=== PATIENT | female | born 1985 | race Caucasian/White ===

== ENCOUNTER → 2016-10-05 | Outpatient (CLI) | payer MEDICAID ==
[~2016-10-05] MED LIST: FERR325T72 PO; IBUP-232 PO; OXYC1TAB63 PO; SENN1TAB PO
== END ==
LOC: HPND 08:47
PROVIDERS: ATTEND Obstetrics & Gynecology Obstetrics
DX: O30.042 Twin pregnancy, dichorionic/diamniotic, second trimester (principal); O40.2XX0 Polyhydramnios, second trimester, not applicable or unspecified; O09.32 Supervision of pregnancy with insufficient antenatal care, second trimester; Z3A.26 26 weeks gestation of pregnancy
CPT/HCPCS: 76811; 76812

== ENCOUNTER 2016-10-08 10:03 | Emergency (ER) | payer MEDICAID ==
[~2016-10-08 10:03] MED LIST changes: -IBUP-232 PO; -OXYC1TAB63 PO; -SENN1TAB PO
--- NOTE | 2016-10-08 11:15 | PD ---
HPI Chief Complaint Mucousy discharge, twin Date Seen: Oct 08, 2016 Time Seen: 11:00 Travel History International Travel<30 Days: No Contact w/Intl Traveler<30Days: No Known Affected Area: No History of Present Illness HPI The patient is a 31-year-old 5 para 2021 at 27-1/7 weeks gestation with a dichorionic diamniotic twin . She reported for visit today and reported 5 days of mucousy discharge. She was sent here for evaluation for possible cervical change or labor. She denies any bleeding, cramping, dysuria hematuria or frequency, vaginal irritation, new sexual partners. She reports good movement. No leakage of fluid. Para: 2 : 5 Miscarriage: 2 : 0 History Past Medical History Narrative Medical Asthma for which she uses albuterol on an as-needed basis Obstetric History Obstetric History 2 term spontaneous vaginal deliveries 2 early first trimester miscarriages without D&C Current is a twin complicated by twin A with polyhydramnios identified this week, dichorionic diamniotic Past Surgical History Surgical History: No Previous Surgery Family History Family History: Negative Social History Alcohol Use: No Tobacco Use: No Substance Abuse: No Allergies-Medications (Allergen,Severity, Reaction): Coded Allergies: *MDRO Multi-Drug Resistant Organism (Verified Adverse Reaction, Unknown, ) MRSA PCR (nares) positive - 12/12/15 Home Meds Active Scripts Ferrous Gluconate 325 Mg [id number] Mg PO DAILY #30 TAB Ref 6 Prov:Grisel Dover CNM [facility] 10/05/16 Without A W/ Fe Carbo (Prenate Mini 29-0.6-0.4-350 mg)1 Cap Cap Sample #2 Prov:Meli Elizabeth [employer]PERATOR HELPER 09/06/16 Review of Systems Except as stated in HPI: all other systems reviewed are Neg Physical Exam Narrative GENERAL: Well-nourished, well-developed patient. SKIN: Warm and dry. HEAD: Normocephalic and atraumatic. EYES: No scleral icterus. No injection or drainage. ENT: No nasal drainage noted. Mucous membranes pink. Airway patent. NECK: Supple, trachea midline. No JVD. CARDIOVASCULAR: Regular rate and rhythm without murmurs, gallops, or rubs. RESPIRATORY: Breath sounds equal bilaterally. No accessory muscle use. ABDOMEN/GI: Abdomen soft, non-tender, bowel sounds present, no rebound, no guarding Gravid to [-] weeks size Fundal Height: [31-] GENITOURINARY: External Genitalia: intact and normal in appearance BUS glands: [Negative-] Cervix: [-] Dilatation: [Closed-] Effacement: [-Long] Station: [High-] Presentation: [-] Membranes: [intact] Uterine Contractions: [-] FHT's: Category: [-] Baseline: [-] Reactive: [-] Variability: [-] Decels: [-] EXTREMITIES: No cyanosis or edema. BACK: Nontender without obvious deformity. No CVA tenderness. NEUROLOGICAL: Awake and alert. Motor and sensory grossly within normal limits. Five out of 5 muscle strength in all muscle groups. Normal speech. Data Data Vital Signs Reviewed: Yes MDM Medical Record Reviewed: Yes Narrative Course / MDM 27 week dichorionic diamniotic with mucousy discharge. Plan: The patient has a stable cervical examination, her fibronectin was positive she is to restrain no contraction activity. She will therefore be discharged home in stable condition with labor precautions. She has a follow-up appointment on Tuesday in 1 week. Diagnosis Diagnosis: Primary Impression: Twin gestation in third trimester Additional Impression: Polyhydramnios affecting Disposition: 01 DISCHARGE HOME Steffen Zelaya MD Oct 08, 2016 11:14
[2016-10-08 11:49] LABS: BACTERIA, URINE RARE /hpf; BLOOD, URINE NEG (NEG); COMMENT (UR) CULTURE INDICATED; CULTURE IF INDICATED CULTURE INDICATED; GLUCOSE,URINE NEG (NEG); KETONE, URINE NEG (NEG); MUCUS URINE FEW /lpf (OCC); NITRITE,URINE NEG (NEG); SQUAMOUS EPITHELIAL CELL URINE 27 /hpf (0-5); URINE COLOR YELLOW (YELLW/STRAW)
[2016-10-08 12:18] LABS: AMPHETAMINE, URINE NEG (NEG); BARBITURATES, URINE NEG (NEG); COCAINE, URINE NEG (NEG)
== END 2016-10-08 13:18 | disposition home or self-care (01) ==
LOC: HOBED 10:03
DX: O40.2XX0 Polyhydramnios, second trimester, not applicable or unspecified (principal); O30.002 Twin pregnancy, unspecified number of placenta and unspecified number of amniotic sacs, second trimester; Z3A.27 27 weeks gestation of pregnancy; B96.89 Other specified bacterial agents as the cause of diseases classified elsewhere
CPT/HCPCS: 80307; 81001; 82731; 87086; 99284

== ENCOUNTER → 2016-11-02 | Outpatient (CLI) | payer MEDICAID ==
[~2016-11-02] MED LIST changes: +IBUP-232 PO; +OXYC1TAB63 PO; +SENN1TAB PO
== END ==
LOC: HPND 09:36
PROVIDERS: ATTEND Obstetrics & Gynecology
DX: O99.323 Drug use complicating pregnancy, third trimester (principal); O40.2XX0 Polyhydramnios, second trimester, not applicable or unspecified; O30.043 Twin pregnancy, dichorionic/diamniotic, third trimester
CPT/HCPCS: 76816

== ENCOUNTER 2016-12-01 15:34 | Emergency (ER) | payer MEDICAID ==
[~2016-12-01 15:34] MED LIST changes: -IBUP-232 PO; -OXYC1TAB63 PO; -SENN1TAB PO
--- NOTE | 2016-12-01 16:44 | PD ---
HPI Chief Complaint Needs US, possible leakage of fluid Date Seen: Dec 01, 2016 Time Seen: 16:23 (Vania Baron MD R1) Travel History International Travel<30 Days: No Contact w/Intl Traveler<30Days: No Known Affected Area: No (Vania Baron MD R1) History of Present Illness HPI Patient is a 31-year-old at 34 and 6/7 weeks with di-di who presents to the ED requiring ultrasound and possible leakage of fluid. She denies vaginal bleeding, and contractions. She feels baby moving regularly. [facility], care notable for late onset of care at 22 weeks, however, she has been followed by ultrasound since August 2016. Notable , twin a, female, noted to have polyhydramnios on sono October 05, 2016. Twin B is male. Medical history includes bipolar disorder, chronic, patient denies being on meds evening prior to . She also has asthma treated with albuterol inhaler as needed, and she notes it has been "a while" since she has needed to use it. On review of EMR from [facility], patient has a history of cocaine and marijuana use. Denies mood symptoms, no history of post- depression. Amnisure is negative. (Vania Baron MD R1) History Past Medical History Narrative Medical Bipolar Asthma Not on meds for either (Vania Baron MD R1) Obstetric History Obstetric History Past Pregnancies 3 Delivery Gest. Outcome Route Length of Anesthesia Delivery Date Age/Wks # Weight/Sex Labor Location Labor 07/03/10 40 1 Live Vaginal 6 lbs 0 oz - F 8 Hrs Epidural [place] No 12/16/15 40 1 Live Vaginal 6 lbs 7 oz - F 28 Hrs Epidural [facility] hosp No (Vania Baron MD R1) Past Surgical History Surgical History: No Previous Surgery (Vania Baron MD R1) Family History Family History: Negative (Vania Baron MD R1) Social History Alcohol Use: No Tobacco Use: No (5 cigarettes per day) Substance Abuse: No (denies; marijuana on EMR) (Vania Baron MD R1) Allergies-Medications (Allergen,Severity, Reaction): Coded Allergies: *MDRO Multi-Drug Resistant Organism (Verified Adverse Reaction, Unknown, ) MRSA PCR (nares) positive - 12/12/15 Home Meds Active Scripts Ferrous Gluconate 325 Mg [id number] Mg PO DAILY #30 TAB Ref 6 Prov:Grisel Dover RICKYGilbert [employer] DIVER 10/05/16 Without A W/ Fe Carbo (Prenate Mini 29-0.6-0.4-350 mg)1 Cap Cap Sample #2 Prov:Meli Elizbaeth [employer]ODUCK DIVER 09/06/16 Review of Systems Except as stated in HPI: all other systems reviewed are Neg (Vania Baron MD R1) Physical Exam Narrative GENERAL: Well-nourished, well-developed female in NAD. SKIN: Warm and dry. No rashes. HEAD: Normocephalic and atraumatic. EYES: No scleral icterus. No injection or drainage. ENT: No nasal drainage noted. Mucous membranes pink. Airway patent. NECK: Supple, trachea midline. No JVD. CARDIOVASCULAR: Regular rate and rhythm without murmurs, gallops, or rubs. RESPIRATORY: Breath sounds equal bilaterally. No accessory muscle use. BREASTS: Bilateral exam showed no masses , no retractions, no nipple discharge. ABDOMEN/GI: Abdomen soft, non-tender, bowel sounds present, no rebound, no guarding GENITOURINARY: External Genitalia: intact and normal in appearance Cervix:2 Dilatation:80 Effacement:-2 Station: vertex Presentation: unknown Membranes: intact, Amnisure negative Uterine Contractions: none FHT's Twin A: Category: 1 Baseline: 130 Reactive: y to 150 Variability: mod Decels: none FHT's Twin B: Category: 1 Baseline: 130 though wandering Reactive: y to 160 Variability: mod Decels: none EXTREMITIES: No cyanosis or edema. BACK: Nontender without obvious deformity. No CVA tenderness. NEUROLOGICAL: Awake and alert. Motor and sensory grossly within normal limits. Five out of 5 muscle strength in all muscle groups. Normal speech. (Vania Baron MD R1) Data Data Vital Signs Reviewed: Yes (BP 133/79, pulse 85) Orders Us Ob Repeat/Fu(Growth) (12/01/16 ) Vital Signs (Adult) .ON ADMISSION (12/01/16 16:19) ^ Labor Status (12/01/16 16:19) ^ Non Stress Test (12/01/16 16:19) ^ Hydration (12/01/16 16:19) Pamg-1 Test .ONCE (12/01/16 16:19) (Vania Baron MD R1) MDM Interpretation(s) 31-year-old at 34 and 6/7 weeks with di-di who presents to the ED requiring ultrasound and possible leakage of fluid. of Di-Di Twins -On review of EMR does not seem that patient has had labs yet. -Preliminary ultrasound report today showing both babies are AGA. Fetus A with a weight in 44th percentile, overall normal with resolved polyhydramnios. Fetus B with weight in 49th percentile, overall normal. Official read is pending. -Fetus A is breech, therefore section is indicated. -Patient has consult scheduled for December 03 @ 1 PM -Discharge to home with f/u CFW Intrauterine : Amnesia is negative. Category 1 tracing Intact membranes Continue routine care Official [facility] recommendations for follow-up pending, will need regular US monitoring of History of Drug Use Cigarettes Possible marijuana per EMR, patient denies History of cocaine abuse per EMR May require full labs and UDS at admission for CS SDW Dr. Disla (Vania Baron MD R1) Diagnosis Diagnosis: Primary Impression: 34 weeks gestation of Additional Impression: Twin gestation in third trimester Disposition: DISCHARGE HOME Condition: Stable Attestation agree with careplan. Patient set up for consult due to malposition ( Jess Disla MD) Vania Baron MD R1 Dec 01, 2016 16:44 Jess Disla MD Dec 02, 2016 09:22
== END 2016-12-01 16:52 | disposition home or self-care (01) ==
LOC: HOBED 15:34
DX: O30.003 Twin pregnancy, unspecified number of placenta and unspecified number of amniotic sacs, third trimester (principal); Z3A.34 34 weeks gestation of pregnancy
CPT/HCPCS: 76816; 84112

== ENCOUNTER 2016-12-16 18:15 | Inpatient (IN) | payer MEDICAID ==
[2016-12-16] VITALS (8 sets, daily range): BP systolic 96–179; BP diastolic 66–147; PULSE 78–97; RESP 18
--- NOTE | 2016-12-16 19:10 | PD ---
HPI Chief Complaint Contractions Date Seen: Dec 16, 2016 Travel History International Travel<30 Days: No Contact w/Intl Traveler<30Days: No Known Affected Area: No History of Present Illness HPI TIUP at 37w 0d, presents with c/o contractions for a few days. Denies LOF/VB. Reports good FM. Reports tripping and falling while walking into hospital. Reports hitting knees and bottom of abdomen. Denies pain. Patient denies problems this . BP noted to be elevated while in [place], 140s/90s. Denies [place] SANTOS/visual changes/RUQ pain. Para: 3 : 6 History Past Medical History Narrative Medical Bipolar disorder- not currently on medication Family History Family History: Negative Social History Alcohol Use: No Tobacco Use: No Substance Abuse: No Allergies-Medications (Allergen,Severity, Reaction): Coded Allergies: *MDRO Multi-Drug Resistant Organism (Verified Adverse Reaction, Unknown, ) MRSA PCR (nares) positive - 12/12/15 Home Meds Active Scripts Ferrous Gluconate 325 Mg [id number] Mg PO DAILY #30 TAB Ref 6 Prov:Grisel Dover CNM [facility] 10/05/16 Without A W/ Fe Carbo (Prenate Mini 29-0.6-0.4-350 mg)1 Cap Cap Sample #2 Prov:Meli Elizabeth [facility] 09/06/16 Physical Exam AFVSS BP 142/91, 140/78, 147/91 Narrative GENERAL: Well-nourished, well-developed patient. SKIN: Warm and dry. HEAD: Normocephalic and atraumatic. EYES: No scleral icterus. No injection or drainage. ENT: No nasal drainage noted. Mucous membranes pink. Airway patent. NECK: Supple, trachea midline. No JVD. CARDIOVASCULAR: Regular rate and rhythm without murmurs, gallops, or rubs. RESPIRATORY: Breath sounds equal bilaterally. No accessory muscle use. BREASTS: Bilateral exam showed no masses , no retractions, no nipple discharge. ABDOMEN/GI: Abdomen soft, non-tender, bowel sounds present, no rebound, no guarding Gravid to [-] weeks size Fundal Height: [-] GENITOURINARY: External Genitalia: intact and normal in appearance BUS glands: [-] Cervix: [-] Dilatation: [ext 3, int 1-2] Effacement: [50] Station: [3] Presentation: [-] Membranes: [intact or ruptured] Uterine Contractions: [occasional contractions] FHT's: Category: [1] Baseline: [Twin A 130s, moderate variability, Category 1/ Twin B 120s, moderate variability, Category 1] Reactive: [-] Variability: [-] Decels: [none] EXTREMITIES: No cyanosis or edema. BACK: Nontender without obvious deformity. No CVA tenderness. NEUROLOGICAL: Awake and alert. Motor and sensory grossly within normal limits. Five out of 5 muscle strength in all muscle groups. Normal speech. MDM Interpretation(s) 31 yo TIUP at 37w 0d with elevated BP, s/p fall, history of bipolar disorder. Plan Will admit for observation. Will obtain Pre Eclampsia labs and coags. Will obtain US. Close observation. Plan d/w patient, all questions answered. Diagnosis Diagnosis: Primary Impression: 37 weeks gestation of Additional Impressions: Twin in third trimester Hypertension affecting in third trimester Status post fall Tanja De Jesus MD Dec 16, 2016 19:10
[2016-12-16] MEDS ORDERED: SODIUM CHLORIDE 0.9% FLUSH 10 ML FLUSH IV FLUSH PRN (19:45)
--- NOTE | 2016-12-16 19:57 | HHI.HP ---
HPI Travel History International Travel<30 Days: No Contact w/Intl Traveler<30Days: No Known Affected Area: No History of Present Illness HPI TIUP at 37w 0d, presents with c/o contractions for a few days. Denies LOF /VB. Reports good FM. Reports tripping and falling while walking into hospital. Reports hitting knees and bottom of abdomen. Denies pain. Patient denies problems this . BP noted to be elevated while in [place], 140s/90s. Denies hypertensive problems during this . Denies [place]/ visual changes/RUQ pain. Last US documented as breech/breech presentation. History Past Medical History Narrative Medical Bipolar disorder- not on medication Obstetric History Obstetric History G1 2006 FT , female, 6#, [place], no complications G2 2009 FT , female, 6#, [place], no complications G3 2016 FT , female, 6# 7oz, no complications Past Surgical History Narrative Surgical None Family History Family History: Negative Social History Alcohol Use: No Tobacco Use: No Substance Abuse: No Allergies-Medications (Allergen,Severity, Reaction): Coded Allergies: *MDRO Multi-Drug Resistant Organism (Verified Adverse Reaction, Unknown, ) MRSA PCR (nares) positive - 12/12/15 Home Meds Active Scripts Ferrous Gluconate 325 Mg [id number] Mg PO DAILY #30 TAB Ref 6 Prov:Grisel Dover CNM [facility] 10/05/16 Without A W/ Fe Carbo (Prenate Mini 29-0.6-0.4-350 mg)1 Cap Cap Sample #2 Prov:Meli Elizabeth [facility] 09/06/16 Physical Exam AFVSS BP 142/91, 140/78, 147/91 Narrative GENERAL: Well-nourished, well-developed patient. SKIN: Warm and dry. HEAD: Normocephalic and atraumatic. EYES: No scleral icterus. No injection or drainage. ENT: No nasal drainage noted. Mucous membranes pink. Airway patent. NECK: Supple, trachea midline. No JVD. CARDIOVASCULAR: Regular rate and rhythm without murmurs, gallops, or rubs. RESPIRATORY: Breath sounds equal bilaterally. No accessory muscle use. BREASTS: Bilateral exam showed no masses , no retractions, no nipple discharge. ABDOMEN/GI: Abdomen soft, non-tender, bowel sounds present, no rebound, no guarding, no bruising noted Gravid to [-] weeks size Fundal Height: [-] GENITOURINARY: External Genitalia: intact and normal in appearance BUS glands: [-] Cervix: [-] Dilatation: [ext 3, int 2] Effacement: [50] Station: [3] Presentation: [-] Membranes: [intact or ruptured] Uterine Contractions: [occasional] FHT's: Category: [Twin A 130s, moderate variability, Category 1/ Twin B 120s, moderate variability, Category 1] Baseline: [-] Reactive: [-] Variability: [-] Decels: [none] EXTREMITIES: No cyanosis. 2+ edema noted, DTR 2+ bilaterally BACK: Nontender without obvious deformity. No CVA tenderness. NEUROLOGICAL: Awake and alert. Motor and sensory grossly within normal limits. Five out of 5 muscle strength in all muscle groups. Normal speech. Data Data Orders Urinalysis - C+S If Indicated (12/16/16 19:10) Place In Observation (12/16/16 ) Diet Regular Basic (12/17/16 Breakfast) Vital Signs (Adult) [id number] AWAKE (12/16/16 19:42) ^ Heart (12/16/16 19:42) Activity Bed Rest With Brp (12/16/16 19:42) [id number]-Ylm-Kuhcx-Iron Prenat (Stuartna (12/17/16 09:00) Sodium Chloride 0.9% Flush (Ns Flush) (12/16/16 21:00) Sodium Chloride 0.9% Flush (Ns Flush) (12/16/16 19:45) Ob/Psych Drug Screen, Urine (12/16/16 19:42) Complete Blood Count With Diff (12/16/16 19:45) Comprehensive Metabolic Panel (12/16/16 19:45) Ldh Serum (12/16/16 19:45) Uric Acid (12/16/16 19:45) Type And Screen (12/16/16 19:45) Rpr With Reflex To Fta Abs (12/16/16 19:45) Us Ob Pelvis >14 Wks Fetus (12/16/16 ) Labs PNL- GC/Chl- negative, GBS- negative, no other labs present Assessment/Plan Assessment and Plan TIUP at 37w 0d, elevated BP, s/p fall, bipolar disorder. Will obtain pre Eclampsia labs and 24 hour urine. US ordered. Admit for observation. Will obtain labs. Plan d/w patient, all questions answered. Tanja De Jesus MD Dec 16, 2016 19:57
[2016-12-16 20:39] LABS: AUTOMATED NEUTROPHIL # 7.4 TH/MM3 (1.8-7.7); BASOPHIL % 0.2 % (0.0-2.0); EOSINOPHIL # 0.1 TH/MM3 (0-0.4); EOSINOPHIL % 1.2 % (0.0-4.0); HEMATOCRIT 31.8 % (35.0-46.0); LYMPH % 20.5 % (9.0-44.0); MEAN CELL VOLUME 90.4 FL (80.0-100.0); MEAN CORPUSCULAR HEMOGLOBIN 32.6 PG (27.0-34.0); MONO % 4.1 % (0.0-8.0); PLATELET COUNT 221 TH/MM3 (150-450); RED BLOOD COUNT 3.52 MIL/MM3 (4.00-5.30); RED CELL DISTRIBUTION WIDTH 12.5 % (11.6-17.2)
[2016-12-16 20:46] LABS: HEMO FLAGS AUTO DIFF
[2016-12-16 20:47] LABS: BACTERIA, URINE FEW /hpf; BLOOD, URINE NEG (NEG); COMMENT (UR) CULTURE INDICATED; CULTURE IF INDICATED CULTURE INDICATED; GLUCOSE,URINE NEG (NEG); KETONE, URINE NEG (NEG); MUCUS URINE MOD /lpf (OCC); NITRITE,URINE NEG (NEG); PH, URINE 6.5 (5.0-8.5); SQUAMOUS EPITHELIAL CELL URINE 22 /hpf (0-5); TRANSITIONAL EPI CELLS, URINE 1 /hpf; URINE COLOR YELLOW (YELLW/STRAW)
[2016-12-16 20:50] LABS: AMPHETAMINE, URINE NEG (NEG); BARBITURATES, URINE NEG (NEG); COCAINE, URINE NEG (NEG)
[2016-12-16 20:57] LABS: ANION GAP 10 MEQ/L (5-15); AST (GOT) 14 U/L (15-37); BICARBONATE 20.9 MEQ/L (21.0-32.0); BLOOD UREA NITROGEN 12 MG/DL (7-18); CHLORIDE 104 MEQ/L (98-107); GLOMERULAR FILTRATION RATE 72 ML/MIN (>89); POTASSIUM 3.6 MEQ/L (3.5-5.1); SODIUM (NA) 135 MEQ/L (136-145); URIC ACID 6.2 MG/DL (2.6-6.0)
[2016-12-16 21:00] LABS: ALKALINE PHOSPHATASE 192 U/L (45-117); ALT (GPT) 13 U/L (10-53); LDH SERUM 155 U/L (84-246); TOTAL BILIRUBIN ADULT 0.4 MG/DL (0.2-1.0)
[2016-12-16] MEDS ORDERED: SODIUM CHLORIDE 0.9% FLUSH 10 ML FLUSH IV FLUSH SCH (21:00)
[2016-12-16 21:15] LABS: APTT (PATIENT) 27.8 SEC (24.3-30.1); INTERNATIONAL NORMALIZED RATIO 0.9 RATIO; PROTHROMBIN TIME - PATIENT 9.4 SEC (9.8-11.6)
[2016-12-16] MEDS ORDERED: cefTRIAXone INJ 1,000 MG in SODIUM CHLORIDE 0.9% INJ 100 ML IV ONE (21:30)
[2016-12-16 21:32] LABS: SCAN/DIFF AUTO DIFF CONFIRMED
[2016-12-16 21:46] LABS: RUBELLA IGG ANTIBODY 33.6 IU/mL (10.0-500.0); RUBELLA STATUS IMMUNE (IMMUNE)
[2016-12-16] MEDS ORDERED: ZOLPIDEM TARTRATE 5 MG TAB PO PRN (22:15)
[2016-12-17] VITALS (15 sets, daily range): BP systolic 113–158; BP diastolic 68–98; PULSE 65–88; RESP 2–20; TEMP 97.4–98.6; O2SAT 96–97
[2016-12-17 01:26] LABS: MRSA PCR NEGATIVE (NEGATIVE); STAPH AUREUS PCR NEGATIVE (NEGATIVE)
[2016-12-17] MEDS ORDERED: ACETAMINOPHEN 500 MG CPLT PO ONE (04:30)
[2016-12-17] MEDS ORDERED: MULTIVIT/MIN/PREN/FOL AC/IRON PRENATAL TAB PO SCH (09:00)
--- NOTE | 2016-12-17 09:11 | PD.OB.ANTE ---
Subjective Diagnosis: (1) Dichorionic diamniotic twin in third trimester (2) Hypertension affecting in third trimester (3) Status post fall Interval History Patient states the last contraction she felt was about 07:00 this morning. Reports continued lower extremity swelling, mild headache. Denies visual changes or RUQ abdominal pain. Reports +FM. Denies LOF. Antepartum ROS: Reports: New complaints (Reports continued lower extremity swelling), movement normal, Contractions (States the last contraction she felt was christine. 07:00 this morning), Denies: Loss of fluid, Vaginal bleeding (Francis Layne MD R1) Attestation Patient seen and examined. Agree with plan. Continue to monitor BPs. Continuous monitoring. (Tanja De Jesus MD) Objective Vital Signs Vital Signs Date Time Temp Pulse Resp B/P Pulse Ox O2 Delivery O2 Flow Rate FiO2 12/17/16 09:01 98.4 20 12/17/16 05:17 75 113/83 12/17/16 05:15 18 12/17/16 05:15 97.4 12/17/16 04:09 74 150/68 12/17/16 02:00 98.3 12/17/16 02:00 88 142/76 12/17/16 02:00 18 12/17/16 00:00 18 12/17/16 00:00 158/68 12/17/16 00:00 87 12/17/16 00:00 98.6 12/16/16 22:19 93 127/84 12/16/16 21:30 18 12/16/16 21:28 78 153/86 12/16/16 20:01 85 120/66 12/16/16 19:50 86 144/71 12/16/16 19:31 87 96/76 12/16/16 19:23 97 147/91 12/16/16 19:16 93 179/147 Lab & Micro Results Test 12/16/16 12/16/16 19:51 20:08 White Blood Count 10.0 TH/MM3 Red Blood Count 3.52 MIL/MM3 Hemoglobin 11.5 GM/DL Hematocrit 31.8 % Mean Corpuscular Volume 90.4 FL Mean Corpuscular Hemoglobin 32.6 PG Mean Corpuscular Hemoglobin 36.0 % Concent Red Cell Distribution Width 12.5 % Platelet Count 221 TH/MM3 Mean Platelet Volume 8.6 FL Neutrophils (%) (Auto) 74.0 % Lymphocytes (%) (Auto) 20.5 % Monocytes (%) (Auto) 4.1 % Eosinophils (%) (Auto) 1.2 % Basophils (%) (Auto) 0.2 % Neutrophils # (Auto) 7.4 TH/MM3 Lymphocytes # (Auto) 2.0 TH/MM3 Monocytes # (Auto) 0.4 TH/MM3 Eosinophils # (Auto) 0.1 TH/MM3 Basophils # (Auto) 0.0 TH/MM3 CBC Comment AUTO DIFF Differential Comment AUTO DIFF CONFIRMED Prothrombin Time 9.4 SEC Prothromb Time International 0.9 RATIO Ratio Activated Partial 27.8 SEC Thromboplast Time Fibrinogen 439 mg/dL Urine Color YELLOW Urine Turbidity HAZY Urine pH 6.5 Urine Specific [place] 1.028 Urine Protein 100 mg/dL Urine Glucose (UA) NEG mg/dL Urine Ketones NEG mg/dL Urine Occult Blood NEG Urine Nitrite NEG Urine Bilirubin NEG Urine Urobilinogen 2.0 MG/DL Urine Leukocyte Esterase LARGE Urine RBC 6 /hpf Urine WBC 138 /hpf Urine Squamous Epithelial 22 /hpf Cells Urine Transitional Epithelial 1 /hpf Cells Urine Bacteria FEW /hpf Urine Mucus MOD /lpf Microscopic Urinalysis Comment CULTURE INDICATED Sodium Level 135 MEQ/L Potassium Level 3.6 MEQ/L Chloride Level 104 MEQ/L Carbon Dioxide Level 20.9 MEQ/L Anion Gap 10 MEQ/L Blood Urea Nitrogen 12 MG/DL Creatinine 0.91 MG/DL Estimat Glomerular Filtration 72 ML/MIN Rate Random Glucose 184 MG/DL Uric Acid 6.2 MG/DL Calcium Level 8.0 MG/DL Total Bilirubin 0.4 MG/DL Aspartate Amino Transf 14 U/L (AST/SGOT) Alanine Aminotransferase 13 U/L (ALT/SGPT) Alkaline Phosphatase 192 U/L Lactate Dehydrogenase 155 U/L Total Protein 6.2 GM/DL Albumin 2.3 GM/DL Urine Opiates Screen NEG Urine Barbiturates Screen NEG Urine Amphetamines Screen NEG Urine Benzodiazepines Screen NEG Urine Cocaine Screen NEG Urine Cannabinoids Screen NEG Rubella Immunity Screen IMMUNE Rubella Antibody, Quantitative 33.6 IU/mL Blood Type O POSITIVE Antibody Screen NEGATIVE Nasal Screen MRSA (PCR) NEGATIVE Staphylococcus aureus NEGATIVE (PCR)(LAB) Date/Time Procedure Status Source Growth 12/16/16 19:51 Urine Culture Received Urine Clean Catch Pending Physical Exam GENERAL: Well-nourished, well-developed patient. SKIN: Warm and dry. HEAD: Normocephalic and atraumatic. EYES: No scleral icterus. No injection or drainage. ENT: No nasal drainage noted. Mucous membranes pink. Airway patent. NECK: Supple, trachea midline. No JVD. CARDIOVASCULAR: Regular rate and rhythm without murmurs, gallops, or rubs. RESPIRATORY: Breath sounds equal bilaterally. No accessory muscle use. BREASTS: Bilateral exam showed no masses , no retractions, no nipple discharge. ABDOMEN/GI: Abdomen soft, non-tender, bowel sounds present, no rebound, no guarding Gravid to [-] weeks size Fundal Height: [-] GENITOURINARY: External Genitalia: intact and normal in appearance BUS glands: [-] Cervix: [-] Dilatation: [ext 3, int 1-2] Effacement: [50] Station: [3] Presentation: [-] Membranes: [intact or ruptured] Uterine Contractions: [occasional contractions] FHT's: Category: [1] Baseline: [Twin A 130s, moderate variability, Category 1/ Twin B 120s, moderate variability, Category 1] Reactive: [-] Variability: [-] Decels: [none] EXTREMITIES: No cyanosis or edema. BACK: Nontender without obvious deformity. No CVA tenderness. NEUROLOGICAL: Awake and alert. Motor and sensory grossly within normal limits. Five out of 5 muscle strength in all muscle groups. Normal speech. (Francis Layne MD R1) Assessment and Plan Problem List: (1) Dichorionic diamniotic twin in third trimester Status: Acute (2) Hypertension affecting in third trimester Status: Acute (3) Status post fall Status: Acute Assessment and Plan Patient is a 31 year old with late care at 37/1 weeks with twin IUP presented yesterday with complaints of contractions for a few days and s/p fall while entering the hospital and found to have elevated blood pressures. - Admitted for observation - Preeclampsia labs and coags obtained; plts 221, AST ALT wnl, ALP mildly elevated - labs still pending - UDS negative to date - GBS negative - BPs up to 150s/90s - UA with elevated protein - Will continue to monitor BPs and start antihypertensive if indicated dw Dr. De Jesus (Francis Layne MD R1) Francis Layne MD R1 Dec 17, 2016 09:11 Tanja De Jesus MD Dec 17, 2016 10:29
[2016-12-17] MEDS ORDERED: ACETAMINOPHEN 500 MG CPLT PO PRN (09:15)
[2016-12-17 10:15] LABS: RAPID PLASMA REAGIN SCREEN NON-REACTIVE (NON-REACTVE)
[2016-12-17] MEDS ORDERED: BETAMETHASONE SOD PHOS/ACETATE SUSP 30 MG/5 ML VIAL IM ONE (11:00)
--- NOTE | 2016-12-17 11:52 | HHI.PR ---
[facility] Note Note Patient is 31-year-old who is at 37 weeks with twin gestation admitted yesterday after a fall was noted to have elevated blood pressures. Patient did have urine protein noted on the UA however there are signs of urinary tract infection as well. Patient plans of a mild headache and has 2+ peripheral edema as well as consistently elevated blood pressures 140 to 150s over 90s. Plan repeat at 5 PM today given her gestational hypertension with possible preeclampsia. Given her 37 weeks status will give betamethasone now start magnesium sulfate IV and planned delivery for late this afternoon. Jess Disla MD Dec 17, 2016 11:52
[2016-12-17] MEDS ORDERED: LACTATED RINGER'S 1000 ML INJ 1,000 ML IV ONE (13:56)
[2016-12-17] MEDS ORDERED: LACTATED RINGER'S 1000 ML INJ 1,000 ML IV SCH ×2 (14:26→22:47)
[2016-12-17] MEDS ORDERED: ceFAZolin 2 GM PREMIX 50 ML IV SCH (15:00)
[2016-12-17] MEDS ORDERED: CITRIC ACID-SODIUM CITRATE LIQ 30 ML UDC PO SCH (15:30)
[2016-12-17] MEDS ORDERED: ONDANSETRON HCL 4 MG/2 ML VIAL ONE (16:53)
[2016-12-17] MEDS ORDERED: CARBOPROST TROMETHAMINE 250 MCG/ML VIAL ONE (16:53)
[2016-12-17] MEDS ORDERED: OXYTOCIN 10 UNIT/ML AMP ONE (16:53)
[2016-12-17] MEDS ORDERED: ACETAMINOPHEN 1000 MG/100 ML VIAL IV ONE (16:53)
[2016-12-17] MEDS ORDERED: EPIDURAL-DO NOT ADMINISTER ANTICOAGULANTS XX PRN (17:00)
[2016-12-17] MEDS ORDERED: EPIDURAL-DIPHENHYDRAMINE HCL 50 MG CAP PO PRN (17:00)
[2016-12-17] MEDS ORDERED: EPIDURAL-DIPHENHYDRAMINE HCL 50 MG/ML VIAL IV PUSH PRN (17:00)
[2016-12-17] MEDS ORDERED: EPIDURAL-NO SYSTEMIC NARCOTICS XX PRN (17:00)
[2016-12-17] MEDS ORDERED: EPIDURAL-NALOXONE HCL 0.4 MG/ML AMP IV PRN (17:00)
[2016-12-17 17:56] LABS: BLOOD GAS BASE EXCESS -2.1 mmol/L (-2-2); BLOOD GAS O2 HGB SATURATION 32 % (90-100); CORD BLOOD GAS HCO3 24 mmol/L (21-29); CORD BLOOD GAS PCO2 52 mmHG (34-78); CORD BLOOD GAS PH 7.28 (7.14-7.42); CORD BLOOD GAS PO2 19 mmHG (3.0-40.0); DRAW SITE CORD BLOOD; STAT NO
[2016-12-17 17:57] LABS: BLOOD GAS BASE EXCESS -3.7 mmol/L (-2-2); BLOOD GAS O2 HGB SATURATION 38 % (90-100); CORD BLOOD GAS HCO3 23 mmol/L (21-29); CORD BLOOD GAS PCO2 53 mmHG (34-78); CORD BLOOD GAS PH 7.25 (7.14-7.42); CORD BLOOD GAS PO2 22 mmHG (3.0-40.0); DRAW SITE CORD BLOOD; STAT NO
--- NOTE | 2016-12-17 17:58 | PD.OB.DELI ---
Procedure Note Section Procedure Pre Op Diagnosis 1. 37 weeks gestation 2. di/di twin gestation breech/breech presentation 3. gestational hypertension Post Op Diagnosis: Post Op Diagnosis same Performed by Jess Disla Procedure: Primary Low Transverse Sec, Other (Bilateral midsegment salpingectomy) Indication for delivery: malposition Informed consent obtained: For anesthesia, For procedure Confirmed correct: Time-out taken Anesthesia: Spinal Medication prior to procedure: Antacids, Antibiotics, IV Monitoring during procedure: Blood pressure monitoring, secured entrance monitor, Pulse oximetry Urinary catheter: Inserted using sterile technique Sterile preparation: Duraprep Position: Supine with wedge to left side Operative Features Skin Incision: Pfannenstiel Uterine Incision: Low transverse w/knife / blunt ext, Other (Bilateral midsegment salpingectomy) Membranes Ruptured: Artificially, Appearance of fluid (clear) Presentation: Breech, Other (Twin a kristel breech/ Twin b footling breech) Time of : 17:22 (172 Twin B) Delivery of infant: Uneventful Infant: Multiple (Twin A female/Twin B male) One Minute : 9 ( 7 twin B) Five Minute : 9 ( 9 twin B) Weight: 2610gm, 5#12 oz twin A, twin B same weight Status of infant: Viable Placenta delivered: Intact, Sent to pathology, Other (Di/Di placenta) Medications: Oxytocin Estimated blood loss: 750 Procedure tolerated: Well Maternal Condition: Stable Condition: Stable Jess Disla MD Dec 17, 2016 17:58
[2016-12-17] MEDS ORDERED: ZOLPIDEM TARTRATE 5 MG TAB PO PRN (18:00)
[2016-12-17] MEDS ORDERED: SIMETHICONE 80 MG CHEWABLE TAB PO PRN (18:00)
[2016-12-17] MEDS ORDERED: SODIUM CHLORIDE 0.9% FLUSH 10 ML FLUSH IV FLUSH PRN (18:00)
[2016-12-17] MEDS ORDERED: ONDANSETRON HCL 4 MG/2 ML VIAL IV PUSH PRN (18:00)
[2016-12-17] MEDS ORDERED: ACETAMINOPHEN 325 MG TAB PO PRN (18:00)
[2016-12-17] MEDS ORDERED: oxyCODONE/ACETAMINOPHEN 5 MG/325 MG TAB PO PRN (18:00)
[2016-12-17] MEDS ORDERED: OXYTOCIN 30 UNITS-500ML PREMIX 500 ML IV ONE (18:00)
[2016-12-17] MEDS ORDERED: MORPHINE SULFATE PF 5 MG/10 ML VIAL ONE (18:05)
[2016-12-17] MEDS ORDERED: *Lactated Ringer's INJ 1,000 ML IV ONE (18:19)
[2016-12-17] MEDS ORDERED: KETOROLAC TROMETHAMINE 60 MG/2 ML (IM) VIAL IM ONE (21:00)
[2016-12-18] VITALS: BP 140/85; PULSE 64; RESP 18; TEMP 98.4
[2016-12-18] MEDS: DOCUSATE SODIUM 50 MG/SENNA 8.6 MG TAB PO PRN ×2 (01:00→12:19)
[2016-12-18] MEDS ORDERED: OXYTOCIN 30 UNITS-500ML PREMIX 500 ML IV PRN (04:00)
[2016-12-18 05:30] LABS: AUTOMATED NEUTROPHIL # 13.4 TH/MM3 (1.8-7.7); BASOPHIL % 0.2 % (0.0-2.0); HEMATOCRIT 29.8 % (35.0-46.0); HEMO FLAGS DIFF FINAL; LYMPH % 9.9 % (9.0-44.0); LYMPHOCYTE # 1.6 TH/MM3 (1.0-4.8); MEAN CELL VOLUME 89.9 FL (80.0-100.0); MEAN CORPUSCULAR HEMOGLOBIN 31.4 PG (27.0-34.0); MEAN CORPUSCULAR HGB CONC 34.9 % (32.0-36.0); MONO % 4.6 % (0.0-8.0); NEUT % 85.3 % (16.0-70.0); PLATELET COUNT 176 TH/MM3 (150-450); RED BLOOD COUNT 3.32 MIL/MM3 (4.00-5.30); RED CELL DISTRIBUTION WIDTH 12.5 % (11.6-17.2); WHITE BLOOD COUNT 15.8 TH/MM3 (4.0-11.0)
[2016-12-18 06:00] VITALS: BP 139/69; PULSE 70; RESP 20; TEMP 98.3
--- NOTE | 2016-12-18 07:33 | HHI.OB ---
Subjective Post Operative Day: 1 Remarks Postoperative day number 1. AFVSS overnight. Pain controlled. Incision not draining. Decreased lochia. Denies dysuria. No breast tenderness. She is feeding the baby via breast/bottle. Appetite good. No nausea or vomiting. Positive flatus. Negative bowel movement. Ambulating well. Denies calf pain, shortness of breath, or cough. Otherwise, she is doing well this morning and has no other complaints. (Chris Lizarraga MD R2) Objective Vitals/I&O Vital Signs Date Time Temp Pulse Resp B/P Pulse Ox O2 Delivery O2 Flow Rate FiO2 12/18/16 06:00 139/69 12/18/16 06:00 98.3 70 20 12/18/16 00:00 64 18 140/85 12/18/16 00:00 98.4 12/17/16 20:10 97.8 73 2 96 12/17/16 20:10 145/82 12/17/16 19:35 68 18 12/17/16 19:35 97 12/17/16 19:35 147/80 12/17/16 16:30 98.3 18 12/17/16 15:57 66 152/82 12/17/16 15:50 98.3 18 12/17/16 12:30 97.9 12/17/16 12:15 16 12/17/16 12:13 65 150/98 12/17/16 09:02 73 151/90 12/17/16 09:01 98.4 20 (Chris Lizarraga MD R2) Result Diagram: 12/18/16 0510 12/16/161950 Objective Remarks GENERAL: Well-nourished, well-developed patient. CARDIOVASCULAR: Regular rate and rhythm without murmurs, gallops, or rubs. RESPIRATORY: Breath sounds equal bilaterally. No accessory muscle use. ABDOMEN/GI: Abdomen soft, non-tender, bowel sounds present. Incision: Clean, dry and intact. Fundus: Firm, non-tender at umbilicus. GENITOURINARY: Light to moderate bleeding. EXTREMITIES: No cyanosis or edema, non-tender, without signs of DVT. Medications and IVs Current Medications Medications (Trade) Dose Ordered Sig/Wendy Route Start Time Stop Time Status Last Admin (Lr 1000 ml Inj) 1,000 ml @ 100 mls/hr Q10H IV 12/17/16 22:47 12/18/16 18:46 (NS Flush) 2 ml BID IV FLUSH 12/17/16 21:00 (NS Flush) 2 ml UNSCH PRN IV FLUSH 12/17/16 18:00 (Mylicon Chew) 80 mg QID PRN PO 12/17/16 18:00 (Tylenol) 650 mg Q6H PRN PO 12/17/16 18:00 (Motrin) 600 mg Q6H PRN PO 12/17/16 18:00 (Percocet 5-325 Mg) 1 tab Q4H PRN PO 12/17/16 18:00 (Percocet 5-325 Mg) 2 tab Q4H PRN PO 12/17/16 18:00 (Terese-Colace) 2 tab Q12H PRN PO 12/17/16 18:00 12/18/16 01:00 (Ambien) 5 mg HS PRN PO 12/17/16 18:00 (M-M-R Ii Inj) 0.5 ml ONCE ONCE SQ 12/18/16 16:00 12/18/16 16:01 (Boostrix Inj) 0.5 ml ONCE ONCE IM 12/18/16 16:00 12/18/16 16:01 (Zofran Inj) 4 mg Q6H PRN IV PUSH 12/17/16 18:00 Miscellaneous Information NO SYSTEMIC NARCOTICS TO BE GIVEN FO... UNSCH PRN XX 12/17/16 17:00 12/18/16 16:59 (Narcan Inj) 0.4 mg UNSCH PRN IV 12/17/16 17:00 12/18/16 16:59 (Benadryl Inj) 25 mg Q6H PRN IV PUSH 12/17/16 17:00 12/18/16 16:59 12/18/16 01:01 (Benadryl) 50 mg Q6H PRN PO 12/17/16 17:00 12/18/16 16:59 Miscellaneous Information ALL NURSING DEPARTMENTS UNSCH PRN XX 12/17/16 17:00 12/18/16 16:59 (Chris Lizarraga MD R2) Assessment/Plan Problem List: (1) Dichorionic diamniotic twin in third trimester (2) Hypertension affecting in third trimester (3) Status post fall (4) care following delivery Assessment and Plan 31 y/o female who is POD# 1 s/p CXN. -Continue routine care. -Percocet and Motrin PRN pain. -Encouraged OOB. Advised pelvic rest for 6 wks. Will need a f/u appt. in 1 wk for incision check. -Re: ctrl, she is undecided at this time. -D/c in 1-2 more days. wdw OB attending Discharge Planning Discharge planning for next one to 2 days (Chris Lizarraga MD R2) Collaborating MD Comments Agree with post op care. Discussed in detail with resident (Jess Disla MD) Chris Lizarraga MD R2 Dec 18, 2016 07:33 Jess Disla MD Dec 18, 2016 08:20
[2016-12-18 08:00] VITALS: BP 124/73; PULSE 64; RESP 18; TEMP 98.3
[2016-12-18] MEDS: SODIUM CHLORIDE 0.9% FLUSH 10 ML FLUSH IV FLUSH SCH (08:16)
[2016-12-18] MEDS: IBUPROFEN 600 MG TAB PO PRN ×2 (12:05→19:46)
[2016-12-18 15:00] VITALS: BP 124/79; PULSE 66; RESP 18; TEMP 97.6
[2016-12-18] MEDS: oxyCODONE/ACETAMINOPHEN 5 MG/325 MG TAB PO PRN ×3 (15:36→23:43)
[2016-12-18] MEDS ORDERED: DIPHTH/TETANUS/ACEL PERTUSSIS (BOOSTER) 0.5 ML VIAL/PFS IM ONE (16:00)
[2016-12-18] MEDS ORDERED: MEASLES, MUMPS, RUBELLA VACCINE 0.5 ML VIAL SQ ONE (16:00)
[2016-12-18 20:00] VITALS: BP 157/82; PULSE 63; RESP 18; TEMP 97.8
[2016-12-19] MEDS: DOCUSATE SODIUM 50 MG/SENNA 8.6 MG TAB PO PRN (01:17)
[2016-12-19] MEDS: IBUPROFEN 600 MG TAB PO PRN (05:31)
[2016-12-19] MEDS: oxyCODONE/ACETAMINOPHEN 5 MG/325 MG TAB PO PRN ×2 (05:31→09:34)
[2016-12-19 08:00] VITALS: BP 150/90; PULSE 65; RESP 20; TEMP 97.8
--- NOTE | 2016-12-19 08:04 | HHI.OB ---
Subjective Post Operative Day: 2 Remarks Patient states she really wants to go home today. However, she also states she is in a lot of pain. She is ambulating without difficulty. She has not had a bowel movement. She does not think she has passed gas. She is bottlefeeding. Her vaginal bleeding has decreased. No headaches, changes in vision, fever, chills. Objective Vitals/I&O Vital Signs Date Time Temp Pulse Resp B/P Pulse Ox O2 Delivery O2 Flow Rate FiO2 12/18/16 20:00 97.8 63 18 157/82 12/18/16 15:00 97.6 66 18 124/79 Result Diagram: 12/18/16 0510 12/16/161950 Objective Remarks GENERAL: Well-nourished, well-developed patient. CARDIOVASCULAR: Regular rate and rhythm without murmurs, gallops, or rubs. RESPIRATORY: Breath sounds equal bilaterally. No accessory muscle use. ABDOMEN/GI: Abdomen soft, non-tender, bowel sounds present. Incision: Clean, dry and intact. Fundus: Firm, non-tender at umbilicus. GENITOURINARY: Light to moderate bleeding. EXTREMITIES: No cyanosis or edema, non-tender, without signs of DVT. Medications and IVs Current Medications Medications (Trade) Dose Ordered Sig/Wendy Route Start Time Stop Time Status Last Admin (NS Flush) 2 ml BID IV FLUSH 12/17/16 21:00 (NS Flush) 2 ml UNSCH PRN IV FLUSH 12/17/16 18:00 (Mylicon Chew) 80 mg QID PRN PO 12/17/16 18:00 (Tylenol) 650 mg Q6H PRN PO 12/17/16 18:00 (Motrin) 600 mg Q6H PRN PO 12/17/16 18:00 12/19/16 05:31 (Percocet 5-325 Mg) 1 tab Q4H PRN PO 12/17/16 18:00 12/18/16 12:05 (Percocet 5-325 Mg) 2 tab Q4H PRN PO 12/17/16 18:00 12/19/16 05:31 (Terese-Colace) 2 tab Q12H PRN PO 12/17/16 18:00 12/19/16 01:17 (Ambien) 5 mg HS PRN PO 12/17/16 18:00 (Zofran Inj) 4 mg Q6H PRN IV PUSH 12/17/16 18:00 Assessment/Plan Problem List: (1) Dichorionic diamniotic twin in third trimester (2) Hypertension affecting in third trimester (3) Status post fall (4) care following delivery Assessment and Plan 31 y/o female who is POD# 2 s/p CXN. -Continue routine care. -Percocet and Motrin PRN pain. -Encouraged OOB. Advised pelvic rest for 6 wks. Will need a f/u appt. in 1 wk for incision/blood pressure check. -Re: ctrl, she is undecided at this time. - Elevated blood pressure: Blood pressure has been intermittently elevated. Night blood pressure measurements 124/77, 124/79, 157/82. Not currently treated. Continue to follow inpatient and outpatient. -D/c today or tomorrow wdw OB attending Discharge Planning Discharge planning for today or tomorrow Morales Benson MD R2 Dec 19, 2016 08:04
[2016-12-19] MEDS: SODIUM CHLORIDE 0.9% FLUSH 10 ML FLUSH IV FLUSH SCH (09:00)
[2016-12-19] MEDS ORDERED: OXYC1TAB63 PO (09:17)
[2016-12-19] MEDS ORDERED: IBUP-232 PO (09:17)
[2016-12-19] MEDS ORDERED: SENN1TAB PO (09:17)
--- NOTE | 2016-12-19 09:20 | HHI.FPPN ---
Addendum to progress note ADDENDUM Reason for addendum: Additonal documentation Additional information Patient states she is passing gas. Her pain is in much better control. She is ambulating without difficulty. She is not having fevers or chills. She is tolerating a regular diet. Plan: ok to be discharged today Morales Srivastava Dr., MD R2 Dec 19, 2016 09:20
--- NOTE | 2016-12-19 09:22 | HHI.DCPOC ---
Discharge Care Plan Diagnosis: (1) care following delivery Report Symptoms to Your Doctor -Temperate above 100.5 degrees -Redness, of incision or excessive or foul smelling drainage -Unusual pain or calf pain -Increased vaginal bleeding -Painful or difficulty urinating -Feelings of extreme sadness or anxiety after 2 weeks Goals to Promote Your Health * To prevent worsening of your condition and complications * To maintain your health at the optimal level Directions to Meet Your Goals Take your medications as prescribed Follow your dietary instruction Follow activity as directed Ensure plenty of rest for recovery Drink fluids for hydration Keep your appointments as scheduled Take your immunizations and boosters as scheduled If your symptoms worsen call your PCP, if no PCP go to Urgent Care Center or Emergency Room Smoking is Dangerous to Your Health. Avoid second hand smoke Call the 24-hour crisis hotline for domestic abuse at Morales Benson MD R2 Dec 19, 2016 09:22
--- NOTE | 2016-12-21 16:59 | MP ---
cc: DAR ADAMS M.D. DATE OF SURGERY 12/17/16 PREOPERATIVE DIAGNOSIS 1. 37 week gestation. 2. Dichorionic diamniotic twin gestation and A breech presentation. 3. Gestational hypertension. POSTOPERATIVE DIAGNOSIS 1. 37 week gestation. 2. Dichorionic diamniotic twin gestation and A breech presentation. 3. Gestational hypertension SURGEON Oksana Adams MD [employer] ASSOCIATE Gabby Fulton, [facility] resident PROCEDURE 1. Primary low transverse section without extension. 2. Bilateral mid segment salpingectomy DRAINS Darby to gravity MEDICATIONS Ancef 2 grams given preoperatively. ANESTHESIA Spinal PATHOLOGY Bilateral tubal segments COUNTS Correct x3. FINDINGS 1. Normal uterus, tubes and ovaries. 2. Clear amniotic fluid for twin B. Twin A had some old blood in the amniotic fluid. 3. Twin A was kristel breech with Apgars of 9 and 9 delivered at 17:22 weighing 5 pounds 12 ounces, 2610 grams. Twin B was a footling breech delivered a 17:24M, clear amniotic fluid, Apgars were 7 and 9. Also the same weight 5 pounds 12 ounces, 2610 grams. Placenta was sent to pathology. PROCEDURE IN DETAIL After adequate anesthetic was obtained and she was put into the left tilt, Adrby catheter was placed. A Pfannenstiel incision was made in the skin taken not to the fascia and the fascia was nicked in the midline distended bilaterally and taken off the rectus muscles. Muscles were divided in the midline. Anterior peritoneum was entered. A transverse hysterotomy incision was made, bluntly extended bilaterally and the bag of water was ruptured with some old blood noted in the amniotic fluid. The breech was delivered and then the lower extremities were flexed at the knee and delivered using clockwise and counterclockwise rotation. The upper extremities were delivered. The head was flexed and delivered. There was some umbilical cord twisted around the upper extremities, resuscitation team was present. Twin B was in a footling breech presentation and the feet were pulled forward, clean amniotic fluid was obtained when the bag of water was ruptured. This baby was delivered in a very similar fashion, also flexing the head for delivery and handing the baby off to the resuscitation team. Placenta was [id number] spontaneously and the endometrial cavity was curetted with a moist laparotomy sponge. The hysterotomy incision was repaired using running locking #1 chromic suture with good hemostasis at closure. Attention was then directed to the fallopian tubes. Lori was used to pull the tube and a window was made in the mesosalpinx and two #1 chromic sutures were tied around a 2 cm segment of tube which was removed and sent to pathology. The right tube was approached in a similar manner. Good hemostasis was obtained. Gutters were rendered free of all blood and clot material and the fascia was closed with a #1 PDS, subcutaneous tissue was made hemostatic with Bovie and closed with a running suture of plain gut and a subcuticular 3-0 Monocryl suture was placed into the skin. The patient tolerated the procedure well. She was taken back to recovery room in good condition. MD MARY Dowling/ /6:03 PM /4:44 PM
[2016-12-22 13:25] LABS: BATH SALTS (MDPV) UR NEG (NEG); ECSTASY (MDMA) UR NEG (NEG); HEROIN (6-ACETYLMORPHINE) UR NEG (NEG); K2 SPICE UR NEG (NEG); OBMETHADONE UR NEG (NEG); OXYCODONE (PERCODAN) NEG (NEG); PHENCYCLIDINE URINE NEG (NEG)
== END 2016-12-19 12:49 | disposition home or self-care (01) | DRG 765 ==
LOC: HOBED 18:15 → H2EA 20:33 → OBSVTOIN 12-17 11:45 → H1EA 12-17 20:02
PROVIDERS: ADMIT Obstetrics & Gynecology; ATTEND Obstetrics & Gynecology
PROC: 10D00Z1 Extraction of Products of Conception, Low, Open Approach (ICD-10-PCS; principal; 2016-12-17)
PROC: 0UB70ZZ Excision of Bilateral Fallopian Tubes, Open Approach (ICD-10-PCS; 2016-12-17)
DX: O30.043 Twin pregnancy, dichorionic/diamniotic, third trimester (principal); N39.0 Urinary tract infection, site not specified; O75.3 Other infection during labor; O13.4 Gestational [pregnancy-induced] hypertension without significant proteinuria, complicating childbirth; O32.1XX0 Maternal care for breech presentation, not applicable or unspecified; O99.344 Other mental disorders complicating childbirth; F31.9 Bipolar disorder, unspecified; O09.33 Supervision of pregnancy with insufficient antenatal care, third trimester; Z3A.37 37 weeks gestation of pregnancy; Z37.2 Twins, both liveborn; Z30.2 Encounter for sterilization; Z91.81 History of falling
CPT/HCPCS: 59025; 76819; 76820; 80053; 80074; 80307; 81001; 82805; 83615; 84550; 85025; 85384; 85610; 85730; 86592; 86703; 86762; 86850; 86900; 86901; 87086; 87640; 87641; 88302; 88307; 96360; G0378; G0481; J0131; J0690; J0696; J0702; J1200; J1885; J2274; J2405; J2590; J3010; J7120

== ENCOUNTER 2017-11-21 10:06 | Emergency (ER) | payer MEDICAID ==
[~2017-11-21] VITALS: Ht 165.1 cm; Wt 86.0 kg
[~2017-11-21 10:06] MED LIST changes: +IBUP-232 PO; +OXYC1TAB63 PO; +SENN1TAB PO
[2017-11-21 10:52] VITALS: BP 141/90; PULSE 74; RESP 16; TEMP 98.5; O2SAT 100
[2017-11-21 11:32] VITALS: BP 116/76; PULSE 70; RESP 18; O2SAT 96
[2017-11-21 11:38] LABS: BACTERIA, URINE FEW /hpf; BILIRUBIN, URINE NEG (NEG); BLOOD, URINE SMALL (NEG); GLUCOSE,URINE NEG (NEG); KETONE, URINE NEG (NEG); MUCUS URINE MOD /lpf (OCC); NITRITE,URINE NEG (NEG); PH, URINE 6.5 (5.0-8.5); SQUAMOUS EPITHELIAL CELL URINE 8 /hpf (0-5); URINE COLOR YELLOW (YELLW/STRAW); URINE LEUKOCYTE ESTERASE LARGE (NEG)
[2017-11-21] MEDS ORDERED: IBUP-232 PO (11:52)
[2017-11-21] MEDS ORDERED: PHEN0.4T PO (11:52)
[2017-11-21] MEDS ORDERED: MACR100C2 PO (11:52)
--- NOTE | 2017-11-21 11:53 | PD ---
HPI Chief Complaint: Complaint Time Seen by Provider: 11:37 Travel History International Travel<30 days: No Contact w/Intl Traveler<30days: No Traveled to known affect area: No History of Present Illness HPI 32-year-old female presents to the emergency department for evaluation of possible urinary tract infection. Patient states that starting 1-2 weeks ago, she started with dysuria, low back pain. She states that the symptoms have been worsening. She denies any fevers or chills. No vomiting. No associated symptoms. Patient is currently 7/10 in the suprapubic area without radiation, sharp and burning. She denies any abnormal vaginal discharge or risk of STDs. She denies . No exacerbating or alleviating factors. Moderate severity. PFSH Past Medical History Arthritis: No Asthma: Yes Autoimmune Disease: No Blood Disorders: No Bipolar Disorder: Yes Anxiety: No Depression: Yes Heart Rhythm Problems: No Cancer: No High Cholesterol: No Chemotherapy: No Congestive Heart Failure: No COPD: No Cerebrovascular Accident: No Dementia: Yes Diminished Hearing: No Endocrine: No Gastrointestinal Disorders: No GERD: No Glaucoma: No Genitourinary: No Hepatitis: Yes (Hep C+) Hiatal Hernia: No Hypertension: No Immune Disorder: No Kidney Stones: No Musculoskeletal: No Neurologic: No Psychiatric: Yes (HBS, UBC, [facility]) Reproductive: No Respiratory: Yes (asthma) Immunizations Current: Yes Myocardial Infarction: No Radiation Therapy: No Renal Failure: No Schizophrenia: Yes (denies) Seizures: No Sleep Apnea: No Thyroid Disease: No Ulcer: No Tetanus Vaccination: < 5 Years ?: Not LMP: 11/18/17 : 3 Para: 4 Miscarriage: 0 : 0 Past Surgical History AICD: No Arteriovenous Shunt: No Section: Yes (x1) Genitourinary Surgery: No Insulin Pump: No Joint Replacement: No Pacemaker: No Other Surgery: Yes (right leg - from a spider bite in the past per pt.) Social History Alcohol Use: Yes Tobacco Use: Yes Substance Use: Yes (MARIJUANA now/ hx cocaine) Allergies-Medications (Allergen,Severity, Reaction): Coded Allergies: *MDRO Multi-Drug Resistant Organism (Verified Adverse Reaction, Unknown, ) MRSA PCR (nares) positive - 12/12/15 Reported Meds & Prescriptions Reported Meds & Active Scripts Active Senna Plus 8.6-50 mg (Sennosides-Docusate Sodium) 1 Tab Tab 2 Tab PO Q12H PRN Oxycodone-Acetaminophen 5-325 mg Tab 1 Tab PO Q4H PRN Ibuprofen 600 Mg Tab 600 Mg PO Q6H PRN Ferrous Gluconate 325 Mg Tab 325 Mg PO DAILY Prenate Mini 29-0.6-0.4-350 mg ( Without A W/ Fe Carbo) 1 Cap Cap Review of Systems Except as stated in HPI: all other systems reviewed are Neg Physical Exam Narrative GENERAL: Well-nourished, well-developed female patient, ambulatory. Afebrile. SKIN: Focused skin assessment warm/dry. HEAD: Normocephalic. Atraumatic. EYES: No scleral icterus. No injection or drainage. NECK: Supple, trachea midline. No JVD or lymphadenopathy. CARDIOVASCULAR: Regular rate and rhythm without murmurs, gallops, or rubs. RESPIRATORY: Breath sounds equal bilaterally. No accessory muscle use. Lungs sounds are clear to auscultation. GASTROINTESTINAL: Abdomen soft, non-tender, nondistended. MUSCULOSKELETAL: No cyanosis, or edema. BACK: Nontender without obvious deformity. No CVA tenderness. Data Data Last Documented VS Vital Signs Date Time Temp Pulse Resp B/P (MAP) Pulse Ox O2 Delivery O2 Flow Rate FiO2 11/21/17 11:32 70 18 116/76 (89) 96 Room Air 11/21/17 10:52 98.5 Orders Orders Urinalysis - C+S If Indicated (11/21/17 10:57) Ed Urine Pregnancytest Poc (11/21/17 11:05) Urine Culture (11/21/17 11:05) Nitrofurantoin Monohyd Macrocr (Macrobid (11/21/17 12:00) Ibuprofen (Motrin) (11/21/17 12:00) Labs Laboratory Tests Test 11/21/17 11:05 Urine Color YELLOW Urine Turbidity HAZY Urine pH 6.5 Urine Specific [place] 1.019 Urine Protein 30 mg/dL Urine Glucose (UA) NEG mg/dL Urine Ketones NEG mg/dL Urine Occult Blood SMALL Urine Nitrite NEG Urine Bilirubin NEG Urine Urobilinogen LESS THAN 2.0 MG/DL Urine Leukocyte Esterase LARGE Urine RBC 20 /hpf Urine WBC /hpf Urine Squamous Epithelial Cells 8 /hpf Urine Bacteria FEW /hpf Urine Mucus MOD /lpf Microscopic Urinalysis Comment CULTURE INDICATED MDM Medical Decision Making Medical Screen Exam Complete: Yes Emergency Medical Condition: Yes Medical Record Reviewed: Yes Differential Diagnosis UTI versus pyelonephritis versus dysuria Narrative Course 32-year-old female presents to the emergency department for evaluation of urinary symptoms for one to 2 weeks. Patient appears well on exam. Urine test is negative. UA shows large leukocyte esterase, innumerable WBC. Patient is given Macrobid 100 mg by mouth, ibuprofen 600 mg by mouth. She 'll be discharged with a prescription for Macrobid, ibuprofen, Pyridium. She is to follow primary care physician or return here for any acute worsening of symptoms. The patient was discharged in stable condition with instructions, including return instructions and follow up instructions. Diagnosis Primary Impression: Urinary tract infection Qualified Codes: N30.01 - Acute cystitis with hematuria Referrals: Primary Care Physician call for appointment Patient Instructions: General Instructions, Urinary Tract Infection in Women ( ED) Additional Instructions: Take antibiotic as directed until gone. Take ibuprofen as directed as needed for pain. Take Pyridium as directed as needed for dysuria. Follow-up with your primary care physician. Return to the emergency department for any acute worsening of symptoms. Med/Other Pt SpecificInfo: Prescription(s) given Scripts Phenazopyridine (Pyridium) 100 Mg Tab 100 MG PO Q8H Y for DYSURIA, #21 TAB 0 Refills Prov: Mirtha Baum 11/21/17 Ibuprofen (Ibuprofen) 600 Mg Tab 600 MG PO TID Y for PAIN SCALE 1 TO 10, #21 TAB 0 Refills Prov: Mirtha Baum 11/21/17 Nitrofurantoin Monohydrate Macrocrystals (Macrobid) 100 Mg Capsule 100 MG PO BID for Infection for 7 Days, #14 CAP 0 Refills Prov: Mirtha Baum 11/21/17 Disposition: DISCHARGE HOME Condition: Stable Mirtha Baum Nov 21, 2017 11:53
[2017-11-21] MEDS ORDERED: NITROFURANTOIN MONOHYD MACROCR 100 MG CAP PO ONE (12:00)
[2017-11-21] MEDS ORDERED: IBUPROFEN 600 MG TAB PO ONE (12:00)
[2017-11-21 12:21] VITALS: BP 118/72; PULSE 75; RESP 18; O2SAT 98
== END 2017-11-21 12:27 | disposition home or self-care (01) ==
LOC: NEPE 10:06
DX: N30.01 Acute cystitis with hematuria (principal); F12.90 Cannabis use, unspecified, uncomplicated; Z72.0 Tobacco use
CPT/HCPCS: 81001; 84703; 87077; 87086; 87185; 87186; 99283

== ENCOUNTER 2018-02-14 14:55 | Emergency (ER) | payer MEDICAID ==
[~2018-02-14] VITALS: Ht 165.1 cm; Wt 126.0 kg
[~2018-02-14 14:55] MED LIST changes: +MACR100C2 PO; +PHEN0.4T PO; -SENN1TAB PO
[2018-02-14 15:15] VITALS: BP 121/59; PULSE 76; RESP 17; TEMP 98.8; O2SAT 98
[2018-02-14 16:34] LABS: AUTOMATED NEUTROPHIL # 5.3 TH/MM3 (1.8-7.7); BASOPHIL % 0.4 % (0.0-2.0); EOSINOPHIL # 0.3 TH/MM3 (0-0.4); HEMOGLOBIN 13.5 GM/DL (11.6-15.3); LYMPH % 29.7 % (9.0-44.0); LYMPHOCYTE # 2.6 TH/MM3 (1.0-4.8); MEAN CELL VOLUME 90.3 FL (80.0-100.0); MEAN CORPUSCULAR HEMOGLOBIN 30.4 PG (27.0-34.0); MEAN CORPUSCULAR HGB CONC 33.7 % (32.0-36.0); MONO % 5.4 % (0.0-8.0); MONOCYTE # 0.5 TH/MM3 (0-0.9); NEUT % 61.5 % (16.0-70.0); PLATELET COUNT 265 TH/MM3 (150-450); RED BLOOD COUNT 4.43 MIL/MM3 (4.00-5.30); RED CELL DISTRIBUTION WIDTH 12.5 % (11.6-17.2); WHITE BLOOD COUNT 8.7 TH/MM3 (4.0-11.0)
--- NOTE | 2018-02-14 16:56 | PD ---
HPI Chief Complaint: Director Of Media Problem/Complaint Time Seen by Provider: 16:38 Travel History International Travel<30 days: No Contact w/Intl Traveler<30days: No Traveled to known affect area: No History of Present Illness HPI 32-year-old female states she has been having vaginal bleeding for the past 22 days. She states that before that she was having normal cycles every month. She states that she has no abdominal pain or other concurrent complaints other than chest pressure on the left side that has been going on for also a couple days. She states that she had a heart attack when she was 15 but does not know a lot about it. She states she also had another heart attack in her 20s but she states she does not know anything about that episode. Patient is a very poor historian. She denies significant other complaints. Quality is bright red. Severity is heavy per patient. She states she feels worse when she moves around. She denies other modifying factors. PFSH Past Medical History Arthritis: No Asthma: Yes Autoimmune Disease: No Blood Disorders: No Bipolar Disorder: Yes Anxiety: No Depression: Yes Heart Rhythm Problems: No Cancer: No High Cholesterol: No Chemotherapy: No Congestive Heart Failure: No COPD: No Cerebrovascular Accident: No Dementia: Yes Diminished Hearing: No Endocrine: No Gastrointestinal Disorders: No GERD: No Glaucoma: No Genitourinary: No Hepatitis: Yes (Hep C+) Hiatal Hernia: No Hypertension: No Immune Disorder: No Kidney Stones: No Musculoskeletal: No Neurologic: No [place]: Yes [place] [facility] [place] [facility] Reproductive: No Respiratory: Yes (asthma) Immunizations Current: Yes Myocardial Infarction: No Radiation Therapy: No Renal Failure: No Schizophrenia: Yes (denies) Seizures: No Sleep Apnea: No Thyroid Disease: No Ulcer: No : 3 Para: 4 Miscarriage: 0 : 0 Past Surgical History AICD: No Arteriovenous Shunt: No Section: Yes (x1) Genitourinary Surgery: No Insulin Pump: No Joint Replacement: No Pacemaker: No Other Surgery: Yes (right leg - from a spider bite in the past per pt.) Social History Alcohol Use: Yes Tobacco Use: Yes Substance Use: Yes (MARIJUANA now/ hx cocaine) Allergies-Medications (Allergen,Severity, Reaction): Coded Allergies: *MDRO Multi-Drug Resistant Organism (Verified Adverse Reaction, Unknown, ) MRSA PCR (nares) positive - 12/12/15 Reported Meds & Prescriptions Reported Meds & Active Scripts Active No Active Prescriptions or Reported Medications Review of Systems Except as stated in HPI: all other systems reviewed are Neg Physical Exam Narrative GENERAL: 32 y/o female in no apparent distress SKIN: Focused skin assessment warm/dry. HEAD: Atraumatic. Normocephalic. EYES: Pupils equal and round. No scleral icterus. No injection or drainage. ENT: No nasal bleeding or discharge. Mucous membranes pink and moist. NECK: Trachea midline. CARDIOVASCULAR: Regular rate and rhythm. RESPIRATORY: No accessory muscle use. Clear to auscultation. Breath sounds equal bilaterally. Abdomen: non tender, no rebound MUSCULOSKELETAL: No obvious deformities. No clubbing. No cyanosis. No edema. NEUROLOGICAL: Awake and alert. No obvious cranial nerve deficits. Motor grossly within normal limits. Normal speech. GENITOURINARY: Normal external genitalia without lesions or erythema. Vaginal vault without blood or drainage. Pelvic: Cervical os was closed without discharge, very scant amount of blood noted in vault. No cervical motion tenderness. Uterus nontender and nonenlarged. Bilateral adnexa nontender Data Data Last Documented VS Vital Signs Date Time Temp Pulse Resp B/P (MAP) Pulse Ox O2 Delivery O2 Flow Rate FiO2 02/14/18 17:09 98 Room Air 02/14/18 15:15 98.8 76 17 121/59 (79) Orders Orders Complete Blood Count With Diff (02/14/18 15:17) Comprehensive Metabolic Panel (02/14/18 15:17) Beta Hcg (Quant/Titer) (02/14/18 16:33) Ed Urine Pregnancytest Poc (02/14/18 16:33) Electrocardiogram (02/14/18 16:48) Ckmb (Isoenzyme) Profile (02/14/18 16:48) Magnesium (Mg) (02/14/18 16:48) Prothrombin Time / Inr (Pt) (02/14/18 16:48) Act Partial Throm Time (Ptt) (02/14/18 16:48) Troponin I (02/14/18 16:48) Lipase (02/14/18 16:48) Chest, Single Ap (02/14/18 16:48) Ecg Monitoring (02/14/18 16:48) Iv Access Insert/Monitor (02/14/18 16:48) Oximetry (02/14/18 16:48) Sodium Chloride 0.9% Flush (Ns Flush) (02/14/18 17:00) Drug Screen, Random Urine (02/14/18 16:48) Sodium Chlor 0.9% 1000 Ml Inj (Ns 1000 M (02/14/18 17:30) Labs Laboratory Tests Test 02/14/18 15:47 02/14/18 17:15 White Blood Count 8.7 TH/MM3 Red Blood Count 4.43 MIL/MM3 Hemoglobin 13.5 GM/DL Hematocrit 40.0 % Mean Corpuscular Volume 90.3 FL Mean Corpuscular Hemoglobin 30.4 PG Mean Corpuscular Hemoglobin Concent 33.7 % Red Cell Distribution Width 12.5 % Platelet Count 265 TH/MM3 Mean Platelet Volume 8.0 FL Neutrophils (%) (Auto) 61.5 % Lymphocytes (%) (Auto) 29.7 % Monocytes (%) (Auto) 5.4 % Eosinophils (%) (Auto) 3.0 % Basophils (%) (Auto) 0.4 % Neutrophils # (Auto) 5.3 TH/MM3 Lymphocytes # (Auto) 2.6 TH/MM3 Monocytes # (Auto) 0.5 TH/MM3 Eosinophils # (Auto) 0.3 TH/MM3 Basophils # (Auto) 0.0 TH/MM3 CBC Comment DIFF FINAL Differential Comment Blood Urea Nitrogen 13 MG/DL Creatinine 0.88 MG/DL Random Glucose 87 MG/DL Total Protein 7.5 GM/DL Albumin 3.6 GM/DL Calcium Level 8.0 MG/DL Alkaline Phosphatase 90 U/L Aspartate Amino Transf (AST/SGOT) 12 U/L Alanine Aminotransferase (ALT/SGPT) 13 U/L Total Bilirubin 0.3 MG/DL Sodium Level 138 MEQ/L Potassium Level 3.9 MEQ/L Chloride Level 106 MEQ/L Carbon Dioxide Level 24.6 MEQ/L Anion Gap 7 MEQ/L Estimat Glomerular Filtration Rate 74 ML/MIN Magnesium Level 2.0 MG/DL Total Creatine Kinase 67 U/L Troponin I LESS THAN 0.02 NG/ML Lipase 124 U/L Human Chorionic Gonadotropin, Quant LESS THAN 1 MIU/ML Prothrombin Time 10.0 SEC Prothromb Time International Ratio 1.0 RATIO Activated Partial Thromboplast Time 27.1 SEC MDM Medical Decision Making Medical Screen Exam Complete: Yes Emergency Medical Condition: Yes Medical Record Reviewed: Yes ([facility] confirmed, records here state history of cocaine use with prior chest pain) Differential Diagnosis Anemia, renal failure, musculoskeletal, vasospasm Narrative Course We will check blood work, chest x-ray, EKG, urine drug screen and reevaluate Physician Communication Physician Communication dr lorenz to follow workup and revaluate Diagnosis Primary Impression: Chest pain Qualified Codes: R07.9 - Chest pain, unspecified Additional Impression: Vagina bleeding Scripts No Active Prescriptions or Reported Meds Harika Viveros MD February 14, 2018 16:56
[2018-02-14] MEDS ORDERED: SODIUM CHLORIDE 0.9% FLUSH 10 ML FLUSH IVF PRN (17:00)
[2018-02-14 17:09] VITALS: O2SAT 98
[2018-02-14 17:10] LABS: ALBUMIN 3.6 GM/DL (3.4-5.0); ALT (GPT) 13 U/L (10-53); AST (GOT) 12 U/L (15-37); BICARBONATE 24.6 MEQ/L (21.0-32.0); BLOOD UREA NITROGEN 13 MG/DL (7-18); CHLORIDE 106 MEQ/L (98-107); CREATININE 0.88 MG/DL (0.50-1.00); GLOMERULAR FILTRATION RATE 74 ML/MIN (>89); GLUCOSE,RANDOM 87 MG/DL (74-106); SODIUM (NA) 138 MEQ/L (136-145)
[2018-02-14 17:12] LABS: ALKALINE PHOSPHATASE 90 U/L (45-117); TOTAL BILIRUBIN ADULT 0.3 MG/DL (0.2-1.0); TOTAL PROTEIN 7.5 GM/DL (6.4-8.2)
--- NOTE | 2018-02-14 17:21 | RADRPT ---
EXAM DATE: 02/14/2018 5:14 PM EDT AGE/SEX: 32 years / Female INDICATIONS: Short of breath. CLINICAL DATA: This is the patient's initial encounter. Patient reports that signs and symptoms have been present for 1 day and indicates a pain score of 3/10. MEDICAL/SURGICAL HISTORY: None. None. COMPARISON: No prior [facility] exams available for comparison. FINDINGS: A single AP view of the chest demonstrates the lungs to be symmetrically aerated without e vidence of mass, infiltrate or effusion. The cardiomediastinal contours are unremarkable. Osseous s tructures are intact. CONCLUSION: No acute intrathoracic disease. Electronically signed by: Robert Herbert MD 02/14/2018 5:20 PM EDT
[2018-02-14] MEDS ORDERED: SODIUM CHLOR 0.9% 1000 ML INJ 1,000 ML IV ONE (17:30)
[2018-02-14 17:35] LABS: TROPONIN I LESS THAN 0.02 NG/ML (0.02-0.05)
[2018-02-14] MEDS ORDERED: RANI150T PO (18:59)
[2018-02-14] MEDS ORDERED: DICY10 PO (18:59)
--- NOTE | 2018-02-14 18:59 | PD ---
Data Data Last Documented VS Vital Signs Date Time Temp Pulse Resp B/P (MAP) Pulse Ox O2 Delivery O2 Flow Rate FiO2 02/14/18 17:09 98 Room Air 02/14/18 15:15 98.8 76 17 121/59 (79) Orders Orders Complete Blood Count With Diff (02/14/18 15:17) Comprehensive Metabolic Panel (02/14/18 15:17) Beta Hcg (Quant/Titer) (02/14/18 16:33) Ed Urine Pregnancytest Poc (02/14/18 16:33) Electrocardiogram (02/14/18 16:48) Ckmb (Isoenzyme) Profile (02/14/18 16:48) Magnesium (Mg) (02/14/18 16:48) Prothrombin Time / Inr (Pt) (02/14/18 16:48) Act Partial Throm Time (Ptt) (02/14/18 16:48) Troponin I (02/14/18 16:48) Lipase (02/14/18 16:48) Chest, Single Ap (02/14/18 16:48) Ecg Monitoring (02/14/18 16:48) Iv Access Insert/Monitor (02/14/18 16:48) Oximetry (02/14/18 16:48) Sodium Chloride 0.9% Flush (Ns Flush) (02/14/18 17:00) Drug Screen, Random Urine (02/14/18 16:48) Sodium Chlor 0.9% 1000 Ml Inj (Ns 1000 M (02/14/18 17:30) Labs Laboratory Tests Test 02/14/18 15:47 02/14/18 17:15 White Blood Count 8.7 TH/MM3 Red Blood Count 4.43 MIL/MM3 Hemoglobin 13.5 GM/DL Hematocrit 40.0 % Mean Corpuscular Volume 90.3 FL Mean Corpuscular Hemoglobin 30.4 PG Mean Corpuscular Hemoglobin Concent 33.7 % Red Cell Distribution Width 12.5 % Platelet Count 265 TH/MM3 Mean Platelet Volume 8.0 FL Neutrophils (%) (Auto) 61.5 % Lymphocytes (%) (Auto) 29.7 % Monocytes (%) (Auto) 5.4 % Eosinophils (%) (Auto) 3.0 % Basophils (%) (Auto) 0.4 % Neutrophils # (Auto) 5.3 TH/MM3 Lymphocytes # (Auto) 2.6 TH/MM3 Monocytes # (Auto) 0.5 TH/MM3 Eosinophils # (Auto) 0.3 TH/MM3 Basophils # (Auto) 0.0 TH/MM3 CBC Comment DIFF FINAL Differential Comment Blood Urea Nitrogen 13 MG/DL Creatinine 0.88 MG/DL Random Glucose 87 MG/DL Total Protein 7.5 GM/DL Albumin 3.6 GM/DL Calcium Level 8.0 MG/DL Alkaline Phosphatase 90 U/L Aspartate Amino Transf (AST/SGOT) 12 U/L Alanine Aminotransferase (ALT/SGPT) 13 U/L Total Bilirubin 0.3 MG/DL Sodium Level 138 MEQ/L Potassium Level 3.9 MEQ/L Chloride Level 106 MEQ/L Carbon Dioxide Level 24.6 MEQ/L Anion Gap 7 MEQ/L Estimat Glomerular Filtration Rate 74 ML/MIN Magnesium Level 2.0 MG/DL Total Creatine Kinase 67 U/L Troponin I LESS THAN 0.02 NG/ML Lipase 124 U/L Human Chorionic Gonadotropin, Quant LESS THAN 1 MIU/ML Prothrombin Time 10.0 SEC Prothromb Time International Ratio 1.0 RATIO Activated Partial Thromboplast Time 27.1 SEC Urine Opiates Screen NEG Urine Barbiturates Screen NEG Urine Amphetamines Screen NEG Urine Benzodiazepines Screen NEG Urine Cocaine Screen NEG Urine Cannabinoids Screen POS MDM Supervised Visit with DEBORAH: No Interpretation(s) My review of EKG: Normal sinus rhythm at a rate of 61, normal axis, normal intervals, no acute ischemia. LABS: CBC is unremarkable CMP is unremarkable HCG negative Troponins negative Lipase normal Magnesium normal X-ray negative Narrative Course Is a 32-year-old woman presents emerged for multiple complaints including vaginal bleeding ongoing for couple weeks, chest pain, and upper abdominal pain. Complains varying intensity and she is sort of a wandering history. She is signed out to me to follow-up on the results of diagnostic testing. Benign pelvic exam. She is benign abdominal exam for me. She has been taking NSAIDs recently. Her complaints and are more on the epigastric abdominal pain. Workups been overall negative. 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 She has been taking NSAIDs and has some epigastric abdominal pain. Will place her on some H2 blockers. Diagnosis Primary Impression: Chest pain Qualified Codes: R07.9 - Chest pain, unspecified Additional Impression: Vagina bleeding Additional Instruction: Take medications as prescribed. 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 Return to the emergency department for any new or worsening symptoms. Med/Other Pt SpecificInfo: Prescription(s) given Scripts Dicyclomine (Bentyl) 10 Mg Cap 10 MG PO TID Y for Bowel Management, #15 CAP 0 Refills Prov: Steffen Velarde MD 02/14/18 Ranitidine (Ranitidine) 150 Mg Tab 150 MG PO BID for Heartburn Management, #60 TAB 0 Refills Prov: Steffen Velarde MD 02/14/18 Disposition: 01 DISCHARGE HOME Condition: Stable Steffen Velarde MD February 14, 2018 18:59
--- NOTE | 2018-02-14 21:51 | EKG ---
Date Performed: 02/14/2018 Time Performed: 17:36:01 PTAGE: 32 years EKG: Sinus rhythm NORMAL ECG Compared to prior electrocardiogram, Prior EKG is missing Lead V4 but otherwise no signif icant change. PREVIOUS TRACING : 05/03/2005 16.03 DOCTOR: Addison Jones Interpretating Date/Time 02/14/2018 21:50:15
== END 2018-02-14 19:34 | disposition home or self-care (01) ==
LOC: NEPC 14:55
DX: R07.9 Chest pain, unspecified (principal); N93.9 Abnormal uterine and vaginal bleeding, unspecified; F12.90 Cannabis use, unspecified, uncomplicated; Z72.0 Tobacco use
CPT/HCPCS: 71045; 80053; 80307; 82550; 83690; 83735; 84484; 84702; 84703; 85025; 85610; 85730; 93005; 96360; 99285; J7030

== ENCOUNTER 2018-05-05 18:20 | Inpatient (IN) ==
[2018-05-05] MEDS ORDERED: Ketorolac Inj 30 MG/ML (IVP) Vial IV.PUSH ONE (21:47)
[2018-05-05] MEDS ORDERED: Acetaminophen 325 MG Tablet PO ONE (21:47)
[2018-05-05] MEDS ORDERED: Lidocaine PF 1% Inj 30 ML Vial INFILTRATN ONE (21:47)
[2018-05-05] MEDS ORDERED: Sod Chloride 0.9% Inj 2,000 ML IV.SIG ONE (21:49)
--- NOTE | 2018-05-05 22:09 | XR ---
EXAM DATE: 05/05/2018 10:06 PM EDT AGE/SEX: 32 years / Female INDICATIONS: Fever. CLINICAL DATA: This is the patient's initial encounter. Patient reports that signs and symptoms have been present for 1 day and indicates a pain score of 8/10. MEDICAL/SURGICAL HISTORY: None. None. COMPARISON: [facility] [place] CHEST SINGLE AP, 02/14/2018. . FINDINGS: A single AP view of the chest demonstrates the lungs to be symmetrically aerated without evidence of mass, infiltrate or effusion. The cardiomediastinal contours are unremarkable. Osseous structures a re intact. CONCLUSION: No acute cardiopulmonary disease. Electronically signed by: Jose Santoro MD 05/05/2018 10:08 PM EDT
[2018-05-05 22:22] LABS: Baso % (Auto) 0.3 % (0.0-2.0); Eos # (Auto) 0.2 th/mm3 (0.0-0.4); Eos % (Auto) 1.2 % (0.0-4.0); Hematocrit 38.8 % (35.0-46.0); Hemoglobin 13.3 gm/dL (11.6-15.3); Lymph # (Auto) 2.1 th/mm3 (1.0-4.8); Lymph % (Auto) 16.6 % (9.0-44.0); Mean Corpuscular HGB Conc 34.2 % (32.0-36.0); Mean Corpuscular Volume 90.6 fL (80.0-100.0); Mean Platelet Volume 7.8 fL (7.0-11.0); Mono # (Auto) 0.6 th/mm3 (0.0-0.9); Mono % (Auto) 4.8 % (0.0-8.0); Neut # (Auto) 9.8 th/mm3 (1.8-7.7); Neut % (Auto) 77.1 % (16.0-70.0); Platelet Count 215 th/mm3 (150-450); Red Blood Count 4.28 mil/mm3 (4.00-5.30); Red Cell Distribution Width 12.6 % (11.6-17.2); White Blood Count 12.8 th/mm3 (4.0-11.0)
[2018-05-05 22:22] LABS: Bilirubin,Urine Negative (Negative); Clarity,Urine Hazy (Clear); Color,Urine Yellow (Yellw/Straw); Glucose,Urine (UA) 50 mg/dL (Negative); Leukocyte Esterase,Urine Trace (Negative); Mucus,Urine Many /lpf (Occasional); Nitrite,Urine Negative (Negative); Specific Gravity,Urine 1.028 (1.002-1.035); Squamous Epithelial Cell,Urine 2 /hpf (0-5)
[2018-05-05] MEDS ORDERED: Vancomycin Inj 1 GM/200 ML PIGGYBACK IV.SIG ONE (22:45)
[2018-05-05] MEDS ORDERED: Piperacil/Tazo 4.5 GM Premix 4.5 GM/100 ML BAG IV.SIG ONE (22:45)
--- NOTE | 2018-05-05 22:59 | ED ---
HPI General Chief complaint: Skin/Abscess/Foreign Body Stated complaint: skin Time Seen by Provider: 05/05/18 21:37 Source: patient Mode of arrival: ambulatory Limitations: no limitations History of Present Illness HPI narrative: 32-year-old female presents the ED for evaluation of 4 day history of reddened, painful bump on the inner aspect of the right thigh. Pain is rated 7/10, no alleviating or exacerbating factors reported. No radiation of the pain reported. Patient states that she can identify no acute injury, insect bite, ingrown hair. She endorses fever, chills, nausea, vomiting, diarrhea 2 days. She states "I feel terrible." She complains of palpitations of the heart and she states that she has been having intermittent chest pain for about a year. She denies history of MRSA. She denies history of IVDA. She attempted to squeeze the area at home with no improvement of symptoms. Related Data Home Medications Medication Instructions Recorded Confirmed No Known Home Medications 05/05/18 05/05/18 Allergies Allergy/AdvReac Type Severity Reaction Status Date / Time *MDRO Multi-Drug Resistant AdvReac Unknown Uncoded 11/21/17 11:39 Organism Review of Systems ROS: all other systems reviewed are negative PMFSH Medical History Medical History Patient denies medical problems (Acute) Family History Family History Other Family history non-contributory Social History Social History Substance History: Active Abuse Second Hand Smoke Exposure: Yes Smoking Status: Current every day smoker Tobacco Type: Cigarettes How Often Do You Have a Drink Containing Alcohol: Never Recent Travel in [place] within the Last 8 Weeks: No Recent Out of Country Travel within the Last 8 Weeks: No Substance Abuse Detail Marijuana: Substance Use Status: Active Route Used Substance Abuse: By Mouth and Inhalation Substance Frequency: AN OUNCE, DAILY Last Used: 05/05/18 Reason for Use: Calm Down Immunization History Tetanus Immunization: Unsure Hx Influenza Vaccine This Season: No Exam Narrative Exam Narrative: GENERAL: Well-nourished, well-developed, anxious white female in no acute distress. SKIN: Focused skin assessment warm/dry. SKIN: There is an indurated area in the right inner thigh which measures about 2 cm in diameter. It is fluctuant but there is no pointing or drainage. There is a 10 cm zone of inflammation around it but no inguinal lymphangitis. HEAD: Atraumatic. Normocephalic. EYES: Pupils equal and round. No scleral icterus. No injection or drainage. ENT: No nasal bleeding or discharge. Mucous membranes pink and moist. NECK: Trachea midline. No JVD. CARDIOVASCULAR: Regular rate and rhythm. No murmur appreciated. RESPIRATORY: No accessory muscle use. Clear to auscultation. Breath sounds equal bilaterally. GASTROINTESTINAL: Abdomen soft, non-tender, nondistended. Hepatic and splenic margins not palpable. MUSCULOSKELETAL: No obvious deformities. No clubbing. No cyanosis. No edema. NEUROLOGICAL: Awake and alert. No obvious cranial nerve deficits. Motor grossly within normal limits. Normal speech. PSYCHIATRIC: Appropriate mood and affect; insight and judgment normal. Procedures Abscess I/D Site: lower extremity Side (if applicable): right Anesthetic used: lidocaine 1% Technique: incised with #11 blade Amount of fluid expressed (mL): 10 Irrigation: Yes Packing used?: none Course Initial Documented Vital Signs Temperature 100.0 F H 05/05/18 18:38 Pulse Rate 98 H 05/05/18 18:38 Respiratory Rate 18 05/05/18 18:38 Blood Pressure 132/78 05/05/18 18:38 Pulse Oximetry 97 05/05/18 18:38 Last Documented Vital Signs Temperature 97.9 F 05/06/18 08:00 Pulse Rate 50 L 05/06/18 08:00 Respiratory Rate 19 05/06/18 08:00 Blood Pressure 122/64 05/06/18 08:00 Pulse Oximetry 100 05/06/18 08:00 Medical Decision Making [facility] Narrative Medical decision making narrative: 32-year-old female presents the ED for evaluation of 4 day history of abscess right inner thigh. She endorses fever, chills, nausea, vomiting. She endorses intermittent chest pain and palpitations 1 year. She denies history of IVDA or MRSA. Patient temp 100 on presentation. Exam consistent with abscess. Sepsis workup was initiated. Blood cultures and wound cultures were obtained. I&D was performed. Please see my procedure note for details. Area of cellulitic change was demarcated. CBC reveals leukocytosis of 12.8. I reviewed the patient's record. She has a history of multiple abscesses and polysubstance abuse. She was administered IV Vancomycin and Zosyn. Plan to admit for observation pending cultures and tailoring of p.o. antibiotics. Patient's agreeable to this plan. CBC is pending. I spoke with Dr. Arboleda who agrees to accept the patient to the medicine service. Please see medicine notes for disposition. Differential Diagnosis Differential Diagnosis: Abscess versus cellulitis versus endocarditis versus other Lab Data Result diagrams: 05/06/18 03:26 05/06/18 03:26 Lab Results 05/05/18 05/05/18 05/05/18 Range/Units 21:55 21:55 21:55 WBC 12.8 H (4.0-11.0) th/mm3 RBC 4.28 (4.00-5.30) mil/mm3 Hgb 13.3 (11.6-15.3) gm/dL Hct 38.8 (35.0-46.0) % MCV 90.6 (80.0-100.0) fL MCH 31.0 (27.0-34.0) pg MCHC 34.2 (32.0-36.0) % RDW 12.6 (11.6-17.2) % Plt Count 215 (150-450) th/mm3 MPV 7.8 (7.0-11.0) fL Neut % (Auto) 77.1 H (16.0-70.0) % Lymph % (Auto) 16.6 (9.0-44.0) % Traill % (Auto) 4.8 (0.0-8.0) % Eos % (Auto) 1.2 (0.0-4.0) % Baso % (Auto) 0.3 (0.0-2.0) % Neut # (Auto) 9.8 H (1.8-7.7) th/mm3 Lymph # (Auto) 2.1 (1.0-4.8) th/mm3 Traill # (Auto) 0.6 (0.0-0.9) th/mm3 Eos # (Auto) 0.2 (0.0-0.4) th/mm3 Baso # (Auto) 0.0 (0.0-0.2) th/mm3 WBC Differential . Differential Comment Auto diff final Sodium 139 (136-145) meq/L Potassium 3.5 (3.5-5.1) meq/L Chloride 105 (98-107) meq/L Carbon Dioxide 25.2 (21.0-32.0) meq/L Anion Gap 9 (5-15) meq/L BUN 10 (7-18) mg/dL Creatinine 0.85 (0.50-1.00) mg/dL Estimated GFR 77 L (>89) mL/min Random Glucose 132 H (74-106) mg/dL Lactic Acid (0.4-2.0) mmol/L Calcium 8.5 (8.5-10.1) mg/dL Prot Corrected Calcium (8.5-10.1) mg/dL Total Bilirubin 0.7 (0.2-1.0) mg/dL AST 8 L (15-37) U/L ALT 10 (10-53) U/L Alkaline Phosphatase 77 (45-117) U/L Troponin I Less than 0.02 L (0.02-0.05) ng/mL Total Protein 7.5 (6.4-8.2) g/dL Albumin 3.8 (3.4-5.0) g/dL Urine Color (Yellw/Straw) Urine Clarity (Clear) Urine pH (5.0-8.5) Ur Specific Tovey (1.002-1.035) Urine Protein (Neg-Trace) mg/dL Urine Glucose (UA) (Negative) mg/dL Urine Ketones (Negative) mg/dL Urine Occult Blood (Negative) Urine Nitrate (Negative) Urine Bilirubin (Negative) Urine Urobilinogen (Less than 2) mg/dL Ur Leukocyte Esterase (Negative) Urine WBC (0-5) /hpf Ur Squamous Epith Cells (0-5) /hpf Urine Mucus (Occasional) /lpf Micro UA Comment Urine Culture Comments 05/05/18 05/05/18 05/06/18 Range/Units 21:55 22:00 03:26 WBC 10.1 (4.0-11.0) th/mm3 RBC 3.57 L (4.00-5.30) mil/mm3 Hgb 11.3 L D (11.6-15.3) gm/dL Hct 32.2 L (35.0-46.0) % MCV 90.0 (80.0-100.0) fL MCH 31.6 (27.0-34.0) pg MCHC 35.1 (32.0-36.0) % RDW 12.6 (11.6-17.2) % Plt Count 168 (150-450) th/mm3 MPV 8.0 (7.0-11.0) fL Neut % (Auto) 64.5 (16.0-70.0) % Lymph % (Auto) 26.2 (9.0-44.0) % Traill % (Auto) 6.8 (0.0-8.0) % Eos % (Auto) 2.2 (0.0-4.0) % Baso % (Auto) 0.3 (0.0-2.0) % Neut # (Auto) 6.5 (1.8-7.7) th/mm3 Lymph # (Auto) 2.6 (1.0-4.8) th/mm3 Traill # (Auto) 0.7 (0.0-0.9) th/mm3 Eos # (Auto) 0.2 (0.0-0.4) th/mm3 Baso # (Auto) 0.0 (0.0-0.2) th/mm3 WBC Differential . Differential Comment Auto diff final Sodium (136-145) meq/L Potassium (3.5-5.1) meq/L Chloride (98-107) meq/L Carbon Dioxide (21.0-32.0) meq/L Anion Gap (5-15) meq/L BUN (7-18) mg/dL Creatinine (0.50-1.00) mg/dL Estimated GFR (>89) mL/min Random Glucose (74-106) mg/dL Lactic Acid 1.8 (0.4-2.0) mmol/L Calcium (8.5-10.1) mg/dL Prot Corrected Calcium (8.5-10.1) mg/dL Total Bilirubin (0.2-1.0) mg/dL AST (15-37) U/L ALT (10-53) U/L Alkaline Phosphatase (45-117) U/L Troponin I (0.02-0.05) ng/mL Total Protein (6.4-8.2) g/dL Albumin (3.4-5.0) g/dL Urine Color Yellow (Yellw/Straw) Urine Clarity Hazy H (Clear) Urine pH 6.0 (5.0-8.5) Ur Specific Tovey 1.028 (1.002-1.035) Urine Protein Negative (Neg-Trace) mg/dL Urine Glucose (UA) 50 (Negative) mg/dL Urine Ketones Negative (Negative) mg/dL Urine Occult Blood Negative (Negative) Urine Nitrate Negative (Negative) Urine Bilirubin Negative (Negative) Urine Urobilinogen 2.0 H (Less than 2) mg/dL Ur Leukocyte Esterase Trace H (Negative) Urine WBC 1 (0-5) /hpf Ur Squamous Epith Cells 2 (0-5) /hpf Urine Mucus Many H (Occasional) /lpf Micro UA Comment Culture not ind Urine Culture Comments Culture not ind 05/06/18 Range/Units 03:26 WBC (4.0-11.0) th/mm3 RBC (4.00-5.30) mil/mm3 Hgb (11.6-15.3) gm/dL Hct (35.0-46.0) % MCV (80.0-100.0) fL MCH (27.0-34.0) pg MCHC (32.0-36.0) % RDW (11.6-17.2) % Plt Count (150-450) th/mm3 MPV (7.0-11.0) fL Neut % (Auto) (16.0-70.0) % Lymph % (Auto) (9.0-44.0) % Traill % (Auto) (0.0-8.0) % Eos % (Auto) (0.0-4.0) % Baso % (Auto) (0.0-2.0) % Neut # (Auto) (1.8-7.7) th/mm3 Lymph # (Auto) (1.0-4.8) th/mm3 Traill # (Auto) (0.0-0.9) th/mm3 Eos # (Auto) (0.0-0.4) th/mm3 Baso # (Auto) (0.0-0.2) th/mm3 WBC Differential Differential Comment Sodium 142 (136-145) meq/L Potassium 3.5 (3.5-5.1) meq/L Chloride 111 H (98-107) meq/L Carbon Dioxide 24.9 (21.0-32.0) meq/L Anion Gap 6 (5-15) meq/L BUN 10 (7-18) mg/dL Creatinine 0.67 (0.50-1.00) mg/dL Estimated GFR Greater than 89 (>89) mL/min Random Glucose 110 H (74-106) mg/dL Lactic Acid (0.4-2.0) mmol/L Calcium 7.4 L* D (8.5-10.1) mg/dL Prot Corrected Calcium 8.2 L (8.5-10.1) mg/dL Total Bilirubin 0.4 (0.2-1.0) mg/dL AST 8 L (15-37) U/L ALT 9 L (10-53) U/L Alkaline Phosphatase 65 (45-117) U/L Troponin I (0.02-0.05) ng/mL Total Protein 5.6 L D (6.4-8.2) g/dL Albumin 2.7 L D (3.4-5.0) g/dL Urine Color (Yellw/Straw) Urine Clarity (Clear) Urine pH (5.0-8.5) Ur Specific Tovey (1.002-1.035) Urine Protein (Neg-Trace) mg/dL Urine Glucose (UA) (Negative) mg/dL Urine Ketones (Negative) mg/dL Urine Occult Blood (Negative) Urine Nitrate (Negative) Urine Bilirubin (Negative) Urine Urobilinogen (Less than 2) mg/dL Ur Leukocyte Esterase (Negative) Urine WBC (0-5) /hpf Ur Squamous Epith Cells (0-5) /hpf Urine Mucus (Occasional) /lpf Micro UA Comment Urine Culture Comments Imaging Data Radiologist's impression: Chest X-Ray 05/05/18 21:48 CONCLUSION: No acute cardiopulmonary disease. Discharge Plan Discharge Disposition Patient Disposition: 30 Still Patient Discharge Details Diagnosis: Sepsis, Cellulitis of right thigh Physicians Team ED Provider: Armando Bean ED Midlevel Provider: Amada Guerrero Primary Care Provider: Primary Care Valeri Aguirre Attending Provider: Nilson Francis Other Providers: [facility],Insurance Discharge Interventions Interventions: ED Discharge Assessment Last Done: 05/06/18 01:20 Vital Signs Last Done: 05/06/18 00:49 Status ED Status: Left Department Discharge Information Discharge Date/Time: 05/06/18 02:14
[2018-05-05] MEDS ORDERED: Vancomycin Inj 1,000 MG in Sodium Chlor 0.9% Inj 250 ML IV.SIG ONE (23:00)
[2018-05-05] MEDS ORDERED: Acetaminophen 325 MG Tablet PO PRN (23:16)
[2018-05-05] MEDS ORDERED: Bisacodyl 10 MG Supp RECTAL PRN (23:16)
[2018-05-05] MEDS ORDERED: Temazepam 15 MG Capsule PO PRN (23:16)
--- NOTE | 2018-05-05 23:18 | P.HPIM ---
History of Present Illness Primary Care Physician: No Primary Care Physician History of Present Illness: This is a 32-year-old female with a PMH of Tobacco Abuse who presented to the ER with complaints of right thigh pain and swelling x4 days. States she noted a "boil" to right inner thigh approx 4 days ago, now progressively worse w/ increased erythema, edema and pain. Pain is severe, 10/10, constant, non- radiating. Reports h/o abscess in the past. Denies IVDU. On arrival, BP 132/ 78, HR 98, O2 sat 97% on RA, Temp 100.0. WBC 12.8. Chemistry pending. UA negative for UTI. CXR with no acute findings. s/p I&D in ER in addition to Vanc/Zosyn. - Diagnosis (1) Sepsis (2) Cellulitis of right thigh (3) Tobacco abuse Review of Systems PAST FAMILY HISTORY: Reviewed. No h/o DM or CAD All other systems reviewed negative except as stated in HPI PMFSH - History History Provided By: Patient - Medical History Medical History: Medical History (Last Updated 05/05/18 @ 21:48 by Khushi Youssef) Patient denies medical problems - Family History Family History: Family History (Last Updated 05/06/18 @ 00:28 by Radha Arboleda MD) Other Family history non-contributory - Tobacco History Tobacco Use In Past 30 Days: Yes Smoking Status: Current every day smoker Tobacco Type: Cigarettes - Alcohol History How Often Do You Have a Drink Containing Alcohol: Never - Substance Use History Substance History: Active Abuse - Substance Use Type Marijuana Status: Active Route Used: By Mouth, Inhalation Frequency: AN OUNCE, DAILY Last Used: 05/05/18 Reason for Use: Calm Down - Travel History Recent Travel in the [place] Within the Last 8 Weeks: No Recent Travel Out of the Country Within the Last 8 Weeks: No - Immunization History Tetanus Immunization: Unsure Hx Influenza Vaccine This Season: No Medications and Allergies Active Medications: Active Medications Acetaminophen (Tylenol) 650 mg PO Q4H PRN PRN Reason: Temp > 100.4 Al Hydroxide/Mg Hydroxide (Milk Of Magnesia Liq) 30 ml PO Q12H PRN PRN Reason: Mild Constipation Bisacodyl (Dulcolax Supp) 10 mg RECTAL DAILY PRN PRN Reason: SEVERE CONSITIPATION Vancomycin HCl 1,000 mg/ (Sodium Chloride) 250 mls @ 250 mls/hr IV.SIG ONCE ONE Stop: 05/05/18 23:59 Cefepime HCl 1,000 mg/ Sodium (Chloride) 100 mls @ 200 mls/hr IV.SIG Q12H JAMES Sodium Chloride (Ns Inj) 1,000 mls @ 100 mls/hr IV.CONT .Q10H [facility] Pharmacy Profile Note (Vancomycin Consult Pharmacy) 0 mls @ 0 mls/hr OTHER UNSCH [facility] Lactulose (Lactulose Liq) 30 ml PO DAILY PRN PRN Reason: SEVERE CONSITIPATION Morphine Sulfate (Morphine Inj) 2 mg IV.PUSH Q4H PRN PRN Reason: PAIN 6-10 Ondansetron HCl (Zofran Inj) 4 mg IV.PUSH Q6H PRN PRN Reason: NAUSEA OR VOMITING Senna/Docusate Sodium (Terese-Colace) 1 tab PO BID [facility] Sennosides (Senokot) 17.2 mg PO Q12H PRN PRN Reason: Moderate Constipation Temazepam (Restoril) 15 mg PO HS PRN PRN Reason: INSOMNIA Allergies Allergy/AdvReac Type Severity Reaction Status Date / Time *MDRO Multi-Drug Resistant AdvReac Unknown Uncoded 11/21/17 11:39 Organism Home Medications Medication Instructions Recorded Confirmed Type No Known Home Medications 05/05/18 05/05/18 History Exam Vital signs: Vital Signs 05/05/18 18:38 05/05/18 21:40 05/05/18 21:48 Temperature 100.0 F H Pulse Rate 98 H 79 85 Respiratory Rate 18 16 Blood Pressure 132/78 137/65 Pulse Oximetry 97 98 Intake & Output 05/05/18 05/05/18 05/06/18 06:59 18:59 06:59 Weight 90.718 kg Narrative: PE: GENERAL: Young white female in no acute distress, but tearful, complaining of pain. HEENT: PERRLA, EOMI. No scleral icterus or conjunctival pallor. No lid lag or facial droop. CARDIOVASCULAR: Regular rate and rhythm. No obvious murmurs to auscultation. No chest tenderness to palpation. RESPIRATORY: No obvious rhonchi or wheezing. Clear to auscultation. Breath sounds equal bilaterally. GASTROINTESTINAL: Abdomen soft, non-tender, nondistended. BS normal. MUSCULOSKELETAL: Extremities without clubbing, cyanosis, or edema. No obvious deformities. Inner right thigh w/ erythema, s/p I&D, tender to palpation. NEUROLOGICAL: Awake, alert and oriented x4. No focal neurologic deficits. Moving both upper and lower extremities spontaneously. Results - Labs CBC & Chem 7: 05/05/18 21:55 05/05/18 21:55 Labs: Short CBC 05/05/18 Range/Units 21:55 WBC 12.8 H (4.0-11.0) th/mm3 Hgb 13.3 (11.6-15.3) gm/dL Hct 38.8 (35.0-46.0) % Plt Count 215 (150-450) th/mm3 Cardiac Enzymes 05/05/18 Range/Units 21:55 Troponin I Less than 0.02 L (0.02-0.05) ng/mL Urine 05/05/18 Range/Units 22:00 Urine Color Yellow (Yellw/Straw) Urine Clarity Hazy H (Clear) Urine pH 6.0 (5.0-8.5) Ur Specific Haslet 1.028 (1.002-1.035) Urine Protein Negative (Neg-Trace) mg/dL Urine Glucose (UA) 50 (Negative) mg/dL - Imaging Impressions Chest X-Ray 05/05/18 21:48 CONCLUSION: No acute cardiopulmonary disease. Caprini VTE Risk Assessment Caprini VTE Risk Assessment: No/Low Risk (score <= 1) Caprini Risk Assessment Model: Point Value = 1 Point Value = 2 Point Value = 3 Point Value = 5 Age 41-60 Minor surgery BMI > 25 kg/m2 Swollen legs Varicose veins or History of unexplained or recurrent spontaneous Oral contraceptives or hormone replacement Sepsis (< 1 month) Serious lung disease, including pneumonia (< 1 month) Abnormal pulmonary function Acute myocardial infarction Congestive heart failure (< 1 month) History of inflammatory bowel disease Medical patient at bed rest Age 61-74 Arthroscopic surgery Major open surgery (> 45 min) Laparoscopic surgery (> 45 min) Malignancy Confined to bed (> 72 hours) Immobilizing plaster cast Central venous access Age >= 75 History of VTE Family history of VTE Factor V Leiden Prothrombin [id number] Lupus anticoagulant Anticardiolipin antibodies Elevated serum homocysteine Heparin-induced thrombocytopenia Other congenital or acquired thrombophilia Stroke (< 1 month) Elective arthroplasty Hip, pelvis, or leg fracture Acute spinal cord injury (< 1 month) Prophylaxis Regimen: Total Risk Factor Score Risk Level Prophylaxis Regimen 0-1 Low Early ambulation 2 Moderate Order ONE of the following: *Sequential Compression Device (SCD) *Heparin 5000 units SQ BID 3-4 Higher Order ONE of the following medications: *Heparin 5000 units SQ TID *Enoxaparin/Lovenox 40 mg SQ daily (WT < 150 kg, CrCl > 30 mL/min) *Enoxaparin/Lovenox 30 mg SQ daily (WT < 150 kg, CrCl > 10-29 mL/min) *Enoxaparin/Lovenox 30 mg SQ BID (WT < 150 kg, CrCl > 30 mL/min) AND/OR *Sequential Compression Device (SCD) 5 or more Highest Order ONE of the following medications: *Heparin 5000 units SQ TID (Preferred with Epidurals) *Enoxaparin/Lovenox 40 mg SQ daily (WT < 150 kg, CrCl > 30 mL/min) *Enoxaparin/Lovenox 30 mg SQ daily (WT < 150 kg, CrCl > 10-29 mL/min) *Enoxaparin/Lovenox 30 mg SQ BID (WT < 150 kg, CrCl > 30 mL/min) AND *Sequential Compression Device (SCD) Assessment and Plan - Assessment (1) Sepsis Code(s): A41.9 - Sepsis, unspecified organism Status: Acute (2) Cellulitis of right thigh Code(s): L03.115 - Cellulitis of right lower limb Status: Acute (3) Tobacco abuse Code(s): Z72.0 - Tobacco use Status: Acute - Plan A/P: 1. Sepsis: Temp 100.0, HR 98, WBC 12.8, Source-Thigh abscess/Cellulitis, Follow up cultures, continue IV Abx. 2. Right Thigh Cellulitis: w/ abscess, s/p I&D in ER, follow up cultures, area demarcated, continue IV Abx, analgesics/antiemetics. Check U/a, Urine Drug Screen. 3. Tobacco Abuse: Pt counselled. NicoDerm prn if needed. 4. DVT Prophylaxis: SCD/Teds 5. Social work for d/c planning as needed. 6. Case discussed w/ ER physician at length, labs/records/imaging reviewed by me.
[2018-05-05] MEDS ORDERED: Vancomycin Consult Pharmacy 1 EACH OTHER SCH (23:45)
[2018-05-06] MEDS ORDERED: Vancomycin Inj 1,500 MG in Sodium Chlor 0.9% Inj 500 ML IV.SIG ONE ×2
[2018-05-06 00:28] LABS: Alanine Aminotransferase 10 U/L (10-53); Albumin 3.8 g/dL (3.4-5.0); Anion Gap 9 meq/L (5-15); Aspartate Aminotransferase 8 U/L (15-37); Blood Urea Nitrogen 10 mg/dL (7-18); Calcium 8.5 mg/dL (8.5-10.1); Carbon Dioxide 25.2 meq/L (21.0-32.0); Chloride 105 meq/L (98-107); Glomerular Filtration Rate 77 mL/min (>89); Glucose,Random 132 mg/dL (74-106); Potassium 3.5 meq/L (3.5-5.1); Sodium 139 meq/L (136-145)
[2018-05-06 00:30] LABS: Alkaline Phosphatase 77 U/L (45-117); Total Protein 7.5 g/dL (6.4-8.2)
[2018-05-06] MEDS: Sod Chloride 0.9% Inj 1,000 ML IV.CONT SCH ×3 (00:42→20:35)
[2018-05-06] MEDS: Morphine Inj 4 MG/ML Vial IV.PUSH PRN ×3 (03:58→18:24)
[2018-05-06 04:16] LABS: Baso % (Auto) 0.3 % (0.0-2.0); Eos # (Auto) 0.2 th/mm3 (0.0-0.4); Eos % (Auto) 2.2 % (0.0-4.0); Hematocrit 32.2 % (35.0-46.0); Hemoglobin 11.3 gm/dL (11.6-15.3); Lymph # (Auto) 2.6 th/mm3 (1.0-4.8); Lymph % (Auto) 26.2 % (9.0-44.0); Mean Corpuscular HGB Conc 35.1 % (32.0-36.0); Mean Corpuscular Hemoglobin 31.6 pg (27.0-34.0); Mono # (Auto) 0.7 th/mm3 (0.0-0.9); Mono % (Auto) 6.8 % (0.0-8.0); Neut # (Auto) 6.5 th/mm3 (1.8-7.7); Neut % (Auto) 64.5 % (16.0-70.0); Platelet Count 168 th/mm3 (150-450); Red Blood Count 3.57 mil/mm3 (4.00-5.30); Red Cell Distribution Width 12.6 % (11.6-17.2); White Blood Count 10.1 th/mm3 (4.0-11.0)
[2018-05-06 04:47] LABS: Alanine Aminotransferase 9 U/L (10-53); Albumin 2.7 g/dL (3.4-5.0); Alkaline Phosphatase 65 U/L (45-117); Anion Gap 6 meq/L (5-15); Aspartate Aminotransferase 8 U/L (15-37); Blood Urea Nitrogen 10 mg/dL (7-18); Calcium 7.4 mg/dL (8.5-10.1); Carbon Dioxide 24.9 meq/L (21.0-32.0); Chloride 111 meq/L (98-107); Glomerular Filtration Rate Greater Than 89 mL/min (>89); Glucose,Random 110 mg/dL (74-106); Potassium 3.5 meq/L (3.5-5.1); Sodium 142 meq/L (136-145); Total Protein 5.6 g/dL (6.4-8.2)
[2018-05-06] MEDS: Senna/Docusate Sodium 8.6/50 MG Tablet PO SCH ×2 (09:11→20:21)
--- NOTE | 2018-05-06 09:32 | P.PN ---
Subjective Interval history: This is a 32-year-old female with a PMH of Tobacco Abuse who presented to the ER with complaints of right thigh pain and swelling x4 days. States she noted a "boil" to right inner thigh approx 4 days ago, now progressively worse w/ increased erythema, edema and pain. Pain is severe, 10/10, constant, non- radiating. Reports h/o abscess in the past. Denies IVDU. On arrival, BP 132/ 78, HR 98, O2 sat 97% on RA, Temp 100.0. WBC 12.8. Chemistry pending. UA negative for UTI. CXR with no acute findings. s/p I&D in ER in addition to Vanc/Zosyn. 05/06: Stable seen in her room, some relatives present, discussed with nurse miss Reyes, continue present care improving condition Physical Exam Vital signs: Vital Signs 05/05/18 18:38 05/05/18 21:40 05/05/18 21:48 Temperature 100.0 F H Pulse Rate 98 H 79 85 Respiratory Rate 18 16 Blood Pressure 132/78 137/65 Pulse Oximetry 97 98 05/05/18 23:16 05/06/18 00:49 05/06/18 02:43 Temperature 97.4 F L Pulse Rate 82 70 68 Respiratory Rate 16 16 18 Blood Pressure 106/54 L 107/51 L 111/60 Pulse Oximetry 97 97 96 05/06/18 08:00 Temperature 97.9 F Pulse Rate 50 L Respiratory Rate 19 Blood Pressure 122/64 Pulse Oximetry 100 Intake & Output 05/05/18 05/06/18 05/06/18 18:59 06:59 18:59 Intake Total 2855 / 2855 100 / 100 Balance 2855 / 2855 100 / 100 Weight 90.718 kg 105.8 kg Intake: IV 2615 / 2615 Zosyn 4.5 GM Premix 4.5 gm In 100 / 100 100 ml @ 200 mls/hr IV.SIG ONCE ONE Rx#:[id number] NS Inj 2,000 ML @ Wide Open IV. 1999 SIG BOLUS ONE Rx#:[id number] Vancomycin Inj 1,500 MG In NS 515 / 515 Inj 500 ML @ 250 mls/hr IV.SIG ONCE ONE Rx#:[id number] Oral 240 / 240 Other 100 / 100 Narrative: GENERAL: Alert and oriented x 3, no acute distress. HEENT: PERRLA, EOMI. No scleral icterus or conjunctival pallor. No lid lag or facial droop. CARDIOVASCULAR: Regular rate and rhythm. No obvious murmurs to auscultation. No chest tenderness to palpation. RESPIRATORY: No obvious rhonchi or wheezing. Clear to auscultation. Breath sounds equal bilaterally. GASTROINTESTINAL: Abdomen soft, non-tender, nondistended. BS normal. MUSCULOSKELETAL: Extremities without clubbing, cyanosis, or edema. No obvious deformities. Inner right thigh w/ erythema, s/p I&D NEUROLOGICAL: Awake, alert and oriented x4. No focal neurologic deficits. Moving both upper and lower extremities spontaneously. Results - Labs CBC & Chem 7: 05/06/18 03:26 05/06/18 03:26 Laboratory Results - last 24 hr 05/05/18 05/05/18 05/05/18 21:55 21:55 21:55 WBC 12.8 H RBC 4.28 Hgb 13.3 Hct 38.8 MCV 90.6 MCH 31.0 MCHC 34.2 RDW 12.6 Plt Count 215 MPV 7.8 Neut % (Auto) 77.1 H Lymph % (Auto) 16.6 [place] % (Auto) 4.8 Eos % (Auto) 1.2 Baso % (Auto) 0.3 Neut # (Auto) 9.8 H Lymph # (Auto) 2.1 [place] # (Auto) 0.6 Eos # (Auto) 0.2 Baso # (Auto) 0.0 WBC Differential . Differential Comment Auto diff final Sodium 139 Potassium 3.5 Chloride 105 Carbon Dioxide 25.2 Anion Gap 9 BUN 10 Creatinine 0.85 Estimated GFR 77 L Random Glucose 132 H Lactic Acid Calcium 8.5 Prot Corrected Calcium Total Bilirubin 0.7 AST 8 L ALT 10 Alkaline Phosphatase 77 Troponin I Less than 0.02 L Total Protein 7.5 Albumin 3.8 Urine Color Urine Clarity Urine pH Ur Specific [place] Urine Protein Urine Glucose (UA) Urine Ketones Urine Occult Blood Urine Nitrate Urine Bilirubin Urine Urobilinogen Ur Leukocyte Esterase Urine WBC Ur Squamous Epith Cells Urine Mucus Micro UA Comment Urine Culture Comments 05/05/18 05/05/18 05/06/18 21:55 22:00 03:26 WBC 10.1 RBC 3.57 L Hgb 11.3 L D Hct 32.2 L MCV 90.0 MCH 31.6 MCHC 35.1 RDW 12.6 Plt Count 168 MPV 8.0 Neut % (Auto) 64.5 Lymph % (Auto) 26.2 [place] % (Auto) 6.8 Eos % (Auto) 2.2 Baso % (Auto) 0.3 Neut # (Auto) 6.5 Lymph # (Auto) 2.6 [place] # (Auto) 0.7 Eos # (Auto) 0.2 Baso # (Auto) 0.0 WBC Differential . Differential Comment Auto diff final Sodium Potassium Chloride Carbon Dioxide Anion Gap BUN Creatinine Estimated GFR Random Glucose Lactic Acid 1.8 Calcium Prot Corrected Calcium Total Bilirubin AST ALT Alkaline Phosphatase Troponin I Total Protein Albumin Urine Color Yellow Urine Clarity Hazy H Urine pH 6.0 Ur Specific [place] 1.028 Urine Protein Negative Urine Glucose (UA) 50 Urine Ketones Negative Urine Occult Blood Negative Urine Nitrate Negative Urine Bilirubin Negative Urine Urobilinogen 2.0 H Ur Leukocyte Esterase Trace H Urine WBC 1 Ur Squamous Epith Cells 2 Urine Mucus Many H Micro UA Comment Culture not ind Urine Culture Comments Culture not ind 05/06/18 03:26 WBC RBC Hgb Hct MCV MCH MCHC RDW Plt Count MPV Neut % (Auto) Lymph % (Auto) [place] % (Auto) Eos % (Auto) Baso % (Auto) Neut # (Auto) Lymph # (Auto) [place] # (Auto) Eos # (Auto) Baso # (Auto) WBC Differential Differential Comment Sodium 142 Potassium 3.5 Chloride 111 H Carbon Dioxide 24.9 Anion Gap 6 BUN 10 Creatinine 0.67 Estimated GFR Greater than 89 Random Glucose 110 H Lactic Acid Calcium 7.4 L* D Prot Corrected Calcium 8.2 L Total Bilirubin 0.4 AST 8 L ALT 9 L Alkaline Phosphatase 65 Troponin I Total Protein 5.6 L D Albumin 2.7 L D Urine Color Urine Clarity Urine pH Ur Specific [place] Urine Protein Urine Glucose (UA) Urine Ketones Urine Occult Blood Urine Nitrate Urine Bilirubin Urine Urobilinogen Ur Leukocyte Esterase Urine WBC Ur Squamous Epith Cells Urine Mucus Micro UA Comment Urine Culture Comments Microbiology 05/05/18 22:55 Abscess - Leg Gram Stain - Final - Imaging Impressions Chest X-Ray 05/05/18 21:48 CONCLUSION: No acute cardiopulmonary disease. Assessment and Plan - Assessment (1) Sepsis Code(s): A41.9 - Sepsis, unspecified organism Status: Acute (2) Cellulitis of right thigh Code(s): L03.115 - Cellulitis of right lower limb Status: Acute (3) Tobacco abuse Code(s): Z72.0 - Tobacco use Status: Acute - Plan 1. Sepsis: Temp 100.0, HR 98, WBC 12.8, Source-Thigh abscess/Cellulitis, Follow up cultures, continue IV Abx. 2. Right Thigh Cellulitis: w/ abscess, s/p I&D in ER, follow up cultures, continue Cefepime and Vancomycin 3. Tobacco Abuse: Pt counselled. NicoDerm prn if needed. 4. Marijuana abuse strongly recommended to stop behavior. DVT Prophylaxis: SCD/Teds Social work for d/c planning as needed. Code Status: Full Code Discussed Condition With: patient and nurse. Discharge Planning: awaiting for improvement. (1) Sepsis Qualifiers: Sepsis type: sepsis due to unspecified organism Qualified Code(s): A41.9 - Sepsis, unspecified organism
--- NOTE | 2018-05-06 10:01 | ECG ---
Date Performed: 05/05/2018 Time Performed: 21:52:11 PTAGE: 32 years EKG: Sinus rhythm NORMAL ECG PREVIOUS TRACING : 02/14/2018 17.36 DOCTOR: Steffen Mckinney Interpretating Date/Time 05/06/2018 09:59:41
[2018-05-06 12:49] LABS: Amphetamine Screen,Urine Neg (Neg); Barbiturate Screen,Urine Neg (Neg); Cannabinoid Screen,Urine Pos (Neg); Cocaine Screen,Urine Neg (Neg)
[2018-05-06] MEDS: Vancomycin Inj 1,750 MG in Sodium Chlor 0.9% Inj 500 ML IV.SIG SCH (12:55)
[2018-05-06 13:00] LABS: Opiate Screen,Urine Pos (Neg)
[2018-05-07] MEDS: Vancomycin Inj 1,750 MG in Sodium Chlor 0.9% Inj 500 ML IV.SIG SCH (03:30)
[2018-05-07] MEDS: Sod Chloride 0.9% Inj 1,000 ML IV.CONT SCH (06:32)
[2018-05-07 07:24] LABS: Anion Gap 7 meq/L (5-15); Blood Urea Nitrogen 7 mg/dL (7-18); Calcium 7.8 mg/dL (8.5-10.1); Carbon Dioxide 23.5 meq/L (21.0-32.0); Chloride 109 meq/L (98-107); Glomerular Filtration Rate Greater Than 89 mL/min (>89); Glucose,Random 84 mg/dL (74-106); Potassium 3.7 meq/L (3.5-5.1); Sodium 139 meq/L (136-145)
[2018-05-07] MEDS: Senna/Docusate Sodium 8.6/50 MG Tablet PO SCH (08:06)
[2018-05-07 09:06] VITALS: RESP 16
--- NOTE | 2018-05-07 10:23 | P.PN ---
Subjective Interval history: This is a 32-year-old female with a PMH of Tobacco Abuse who presented to the ER with complaints of right thigh pain and swelling x4 days. States she noted a "boil" to right inner thigh approx 4 days ago, now progressively worse w/ increased erythema, edema and pain. Pain is severe, 10/10, constant, non- radiating. Reports h/o abscess in the past. Denies IVDU. On arrival, BP 132/ 78, HR 98, O2 sat 97% on RA, Temp 100.0. WBC 12.8. Chemistry pending. UA negative for UTI. CXR with no acute findings. s/p I&D in ER in addition to Vanc/Zosyn. 05/06: Stable seen in her room, some relatives present, discussed with nurse miss Reyes, continue present care improving condition 05/07: Seen in the presence at all times of Nurse Miss Reyes, she wants to go home, explained she will continue IV antibiotics she is Improving, her blood culture is negative so no BSI and awaiting for final sensitive report from her wound culture giving Staph aureus probable discharge in am tomorrow. Physical Exam Vital signs: Vital Signs 05/06/18 12:00 05/06/18 16:00 05/06/18 20:00 Temperature 97.3 F L 98.7 F 98.8 F Pulse Rate 62 61 65 Respiratory Rate 16 20 16 Blood Pressure 126/70 142/80 H 153/89 H Pulse Oximetry 99 100 96 05/07/18 00:00 05/07/18 08:00 Temperature 97.7 F 97.9 F Pulse Rate 74 66 Respiratory Rate 18 16 Blood Pressure 132/80 121/68 Pulse Oximetry 99 97 Intake & Output 05/06/18 05/07/18 05/07/18 18:59 06:59 18:59 Intake Total 2550 / 2550 717.5 / 717.5 100 / 100 Balance 2550 / 2550 717.5 / 717.5 100 / 100 Intake: IV 1000 / 1000 717.5 / 717.5 NS Inj 1,000 ML @ 100 mls/hr IV 1000 / 1000 .CONT .Q10H JAMES Rx#:[id number] Maxipime Inj 1,000 MG In NS Inj 200 / 200 100 ML @ 200 mls/hr IV.SIG Q12H JAMES Rx#:[id number] Vancomycin Inj 1,750 MG In NS 517.5 / 517.5 Inj 500 ML @ 250 mls/hr IV.SIG Q12H JAMES Rx#:[id number] Other 1550 / 1550 100 / 100 Other: # Voids 2 Date of Last Bowel Movement 05/06/18 Narrative: GENERAL: Alert and oriented x 3, no acute distress. HEENT: PERRLA, EOMI. No scleral icterus or conjunctival pallor. No lid lag or facial droop. CARDIOVASCULAR: Regular rate and rhythm. No obvious murmurs to auscultation. No chest tenderness to palpation. RESPIRATORY: No obvious rhonchi or wheezing. Clear to auscultation. Breath sounds equal bilaterally. GASTROINTESTINAL: Abdomen soft, non-tender, nondistended. BS normal. MUSCULOSKELETAL: Extremities without clubbing, cyanosis, or edema. No obvious deformities. Inner right thigh w/ erythema, s/p I&D Improving erythema and edema. NEUROLOGICAL: Awake, alert and oriented x4. No focal neurologic deficits. Moving both upper and lower extremities spontaneously. Results - Labs CBC & Chem 7: 05/06/18 03:26 05/07/18 06:14 Laboratory Results - last 24 hr 05/06/18 05/07/18 11:30 06:14 Sodium 139 Potassium 3.7 Chloride 109 H Carbon Dioxide 23.5 Anion Gap 7 BUN 7 Creatinine 0.57 Estimated GFR Greater than 89 Random Glucose 84 Calcium 7.8 L Urine Opiates Screen Pos H Ur Barbiturates Screen Neg Ur Amphetamines Screen Neg U Benzodiazepines Scrn Neg Urine Cocaine Screen Neg U Cannabinoids Screen Pos H Microbiology 05/05/18 22:55 Abscess - Leg Gram Stain - Final 05/05/18 22:55 Abscess - Leg Wound Culture - Preliminary Staphylococcus aureus 05/05/18 21:55 Blood - Peripheral Aerobic Blood Culture - Preliminary No growth in 1 day 05/05/18 21:55 Blood - Peripheral Anaerobic Blood Culture - Preliminary No growth in 1 day 05/05/18 21:45 Blood - Peripheral Aerobic Blood Culture - Preliminary No growth in 1 day 05/05/18 21:45 Blood - Peripheral Anaerobic Blood Culture - Preliminary No growth in 1 day Assessment and Plan - Assessment (1) Sepsis Code(s): A41.9 - Sepsis, unspecified organism Status: Acute (2) Cellulitis of right thigh Code(s): L03.115 - Cellulitis of right lower limb Status: Acute (3) Tobacco abuse Code(s): Z72.0 - Tobacco use Status: Acute - Plan 1. Sepsis: Temp 100.0, HR 98, WBC 12.8, Source-Thigh abscess/Cellulitis, Follow up cultures, continue IV Abx. Blood cultures negative, Wound culture positive for Staph aureus awaiting final sensitivity report for discharge. 2. Right Thigh Cellulitis: w/ abscess, s/p I&D in ER, follow up cultures, continue Cefepime and Vancomycin 3. Tobacco Abuse: Pt counselled. NicoDerm prn if needed. 4. Marijuana abuse strongly recommended to stop behavior. DVT Prophylaxis: SCD/Teds Code Status: Full Code. Discussed Condition With: patient and nurse. Discharge Planning: Expected for tomorrow in am. (1) Sepsis Qualifiers: Sepsis type: sepsis due to unspecified organism Qualified Code(s): A41.9 - Sepsis, unspecified organism
[2018-05-07] MEDS ORDERED: Pharmacy Ordered Lab Info OTHER ONE (12:45)
[2018-05-07 13:02] VITALS: BP 114/66; PULSE 64; TEMP 98.3; O2SAT 99
[2018-05-07] MEDS ORDERED: Vancomycin Inj 1,750 MG in Sodium Chlor 0.9% Inj 500 ML IV.SIG SCH (15:00)
--- NOTE | 2018-05-07 16:59 | P.DS ---
Date of admission: 05/05/18 23:16 Primary care physician: No Primary Care Physician Attending physician on discharge: Nilson Francis Anticipated date of discharge: 05/07/18 Brief History from admission: This is a 32-year-old female with a PMH of Tobacco Abuse who presented to the ER with complaints of right thigh pain and swelling x4 days. States she noted a "boil" to right inner thigh approx 4 days ago, now progressively worse w/ increased erythema, edema and pain. Pain is severe, 10/10, constant, non- radiating. Reports h/o abscess in the past. Denies IVDU. On arrival, BP 132/ 78, HR 98, O2 sat 97% on RA, Temp 100.0. WBC 12.8. Chemistry pending. UA negative for UTI. CXR with no acute findings. s/p I&D in ER in addition to Vanc/Zosyn. DS: Diagnosis - Discharge Diagnosis (1) Sepsis Status: Acute (2) Cellulitis of right thigh Status: Acute (3) Tobacco abuse Status: Acute DS: Summary Hospital Course: This is a 32-year-old female with a PMH of Tobacco Abuse who presented to the ER with complaints of right thigh pain and swelling x4 days. States she noted a "boil" to right inner thigh approx 4 days ago, now progressively worse w/ increased erythema, edema and pain. Pain is severe, 10/10, constant, non- radiating. Reports h/o abscess in the past. Denies IVDU. On arrival, BP 132/ 78, HR 98, O2 sat 97% on RA, Temp 100.0. WBC 12.8. Chemistry pending. UA negative for UTI. CXR with no acute findings. s/p I&D in ER in addition to Vanc/Zosyn. 05/06: Stable seen in her room, some relatives present, discussed with nurse miss Reyes, continue present care improving condition 05/07: Seen in the presence at all times of Nurse Miss Reyes, she wants to go home, explained she will continue IV antibiotics she is Improving, her blood culture is negative so no BSI and awaiting for final sensitive report from her wound culture giving Staph aureus probable discharge in am tomorrow. THE PATIENT DECIDED TO SIGN AMA. 1. Sepsis: Temp 100.0, HR 98, WBC 12.8, Source-Thigh abscess/Cellulitis, Follow up cultures, continue IV Abx. Blood cultures negative, Wound culture positive for Staph aureus awaiting final sensitivity report for discharge. 2. Right Thigh Cellulitis: w/ abscess, s/p I&D in ER, follow up cultures, continue Cefepime and Vancomycin 3. Tobacco Abuse: Pt counselled. NicoDerm prn if needed. 4. Marijuana abuse strongly recommended to stop behavior. DVT Prophylaxis: SCD/Teds Code Status: Full Code. - Time Spent with Patient Total time spent providing and/or coordinating discharge services: Less than 30 minutes - Quality: VTE Deep Vein Thrombosis/Pulmonary Embolism Present on Admission: No Exam Vital signs: Vital Signs 05/06/18 20:00 05/07/18 00:00 05/07/18 08:00 Temperature 98.8 F 97.7 F 97.9 F Pulse Rate 65 74 66 Respiratory Rate 16 18 16 Blood Pressure 153/89 H 132/80 121/68 Pulse Oximetry 96 99 97 05/07/18 12:00 Temperature 98.3 F Pulse Rate 64 Respiratory Rate 16 Blood Pressure 114/66 Pulse Oximetry 99 Intake & Output 05/06/18 05/07/18 05/07/18 18:59 06:59 18:59 Intake Total 2550 / 2550 717.5 / 717.5 100 / 100 Balance 2550 / 2550 717.5 / 717.5 100 / 100 Intake: IV 1000 / 1000 717.5 / 717.5 NS Inj 1,000 ML @ 100 mls/hr IV 1000 / 1000 .CONT .Q10H JMAES Rx#:[id number] Maxipime Inj 1,000 MG In NS Inj 200 / 200 100 ML @ 200 mls/hr IV.SIG Q12H JAMES Rx#:[id number] Vancomycin Inj 1,750 MG In NS 517.5 / 517.5 Inj 500 ML @ 250 mls/hr IV.SIG Q12H JAMES Rx#:[id number] Other 1550 / 1550 100 / 100 Other: # Voids 2 Date of Last Bowel Movement 05/06/18 Narrative: GENERAL: Alert and oriented x 3, no acute distress. HEENT: PERRLA, EOMI. No scleral icterus or conjunctival pallor. No lid lag or facial droop. CARDIOVASCULAR: Regular rate and rhythm. No obvious murmurs to auscultation. No chest tenderness to palpation. RESPIRATORY: No obvious rhonchi or wheezing. Clear to auscultation. Breath sounds equal bilaterally. GASTROINTESTINAL: Abdomen soft, non-tender, nondistended. BS normal. MUSCULOSKELETAL: Extremities without clubbing, cyanosis, or edema. No obvious deformities. Inner right thigh w/ erythema, s/p I&D Improving erythema and edema. NEUROLOGICAL: Awake, alert and oriented x4. No focal neurologic deficits. Moving both upper and lower extremities spontaneously. Results Procedures completed during hospitalization: I and D. Labs on day of discharge: Labs from last 24 hours 05/07/18 05/07/18 13:00 06:14 Sodium 139 Potassium 3.7 Chloride 109 H Carbon Dioxide 23.5 Anion Gap 7 BUN 7 Creatinine 0.57 Estimated GFR Greater than 89 Random Glucose 84 Calcium 7.8 L Vancomycin Trough 7.9 Preliminary micro results at discharge 05/05/18 21:55 Aerobic Blood Culture - Preliminary Blood - Peripheral No growth in 2 days Anaerobic Blood Culture - Preliminary No growth in 2 days 05/05/18 21:45 Aerobic Blood Culture - Preliminary Blood - Peripheral No growth in 2 days Anaerobic Blood Culture - Preliminary No growth in 2 days - Impressions ITS Impressions Chest X-Ray 05/05/18 21:48 CONCLUSION: No acute cardiopulmonary disease. Discharge Plan - Discharge Disposition Patient Disposition: Left Against Medical Advice - Physicians Team Primary Care Provider: Primary Care [place],No Attending Provider: Nilson Francis Other Providers: Monitor Backlinks,Insurance
[2018-05-08] MEDS ORDERED: Pharmacy Ordered Lab Info OTHER ONE (14:45)
== END 2018-05-07 15:17 | disposition left against medical advice (07) ==
LOC: NEDA 18:20 → NEPE 18:20 → N07 05-06 02:13
PROVIDERS: ADMIT Internal Medicine; ATTEND Internal Medicine